=== PATIENT | female | born 1985 | race American Indian/Alaskan Native ===

== ENCOUNTER 2017-06-29 10:08 | Outpatient (CLI) | payer MEDICAID | END 2017-06-29 10:09 | disposition home or self-care (01) | LOC: VAS 10:08 | PROVIDERS: ATTEND Obstetrics & Gynecology | DX: M79.661 Pain in right lower leg (principal); M79.89 Other specified soft tissue disorders; I10 Essential (primary) hypertension | CPT/HCPCS: 93970 ==

== ENCOUNTER 2017-07-03 10:03 | Inpatient (IN) | payer MEDICAID ==
--- NOTE | 2017-07-02 17:56 | History and Physical Report ---
History of Present Illness Date of examination: 06/28/17 Chief complaint: repeat delivery History of present illness: Past History : 4 Term Births: 2 Living Children: 2 Para: 2 Prev : 2 Spont. Ab: 1 # 1 Delivery date: 06/06/2007 Weeks Gestation: 40.3 Delivery type: Anesthesia type: general Delivery location: [facility] Infant Sex: Male weight: 7-4 Name: Desmond Comments: Placental abruption # 2 Delivery date: 08/2013 Comments: 9 wks ? blood disorder # 3 Delivery date: 03/13/2015 Weeks Gestation: 38 Delivery type: Anesthesia type: epidural Delivery location: [facility] Infant Sex: female weight: 9.69 Comments: none Risk Factors: Smoked Tobacco Use: Never smoker Smokeless Tobacco Use: Never Passive smoke exposure: no Drug use: no HIV high-risk behavior: low risk Caffeine use: 0 drinks per day Alcohol use: no Seatbelt use: preg-counseling specialist % Dietary Counseling: pn yes Past Medical History: Reviewed history from 10/27/2014 and no changes required: None Past Surgical History: Reviewed history from 10/27/2014 and no changes required: C/S x 2 Past Medical History 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 Infection History Hx of STD: chlamydia HIV Risk Eval: low risk Hepatitis B Risk Eval: low risk Personal hx. of genital herpes: no Partner hx. of genital herpes: no Rash, Viral, or Febrile illness since last LMP? no Varicella/Chicken Pox Status: Previous Disease TB Risk: no Genetic History Congenital Heart Defect: Mom: no Dad: no Tierra Disease: Mom: no Dad: no Thalassemia Mom: no Dad: no Neural Tube Defect Mom: no Dad: no Down's Syndrome Mom: no Dad: no Felix-Sachs Mom: no Dad: no Sickle Cell Disease/Trait Mom: no Dad: no Hemophilia Mom: no Dad: no Muscular Dystrophy Mom: no Dad: no Cystic Fibrosis Mom: no Dad: no Travis Chorea Mom: no Dad: no Mental Retardation Mom: no Dad: no Fragile X Mom: no Dad: no Other Genetic/Chromosomal Disorder Mom: no Dad: no Child w/other defect Mom: no Dad: no Enviromental Exposures Xray Exposure: no Medication, drug, or alcohol use since LMP: no Chemical/Other Exposure: no Exposure to Cat Liter: no Hx of Parvovirus (Fifth Disease): no 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 Allergies: No known allergies Physical Exam General appearance: well nourished, healthy appearing, no distress Chest/Lungs: respiratory effort normal, lungs clear to auscultation Cardiovascular: normal rate and rhythm Abdomen/GI: normal bowel sounds; soft, nontender Neuro: grossly normal DTRs, sensation, strength, cranial nerves Extremities: edema (B)LE Past History - Obstetrical History Expected Date of Delivery: 07/08/17 Actual Gestation: 39 Week(s) 1 Day(s) : 3 Medications and Allergies Allergies Allergy/AdvReac Type Severity Reaction Status Date / Time No Known Allergies Allergy Verified 08/30/13 11:07 Home Medications Medication Instructions Recorded Confirmed Last Taken Type Ferrous Sulfate [Feosol] 325 mg PO QDAY 08/30/13 03/11/15 Unknown History Oxycodone HCl/Acetaminophen 1 each PO Q6HR PRN #14 tablet 08/31/13 03/11/15 Unknown Rx [Percocet 10-325 mg] Docusate Sodium [Colace] 100 mg PO BID PRN #60 capsule 03/11/15 Unknown Rx Ibuprofen [Motrin] 800 mg PO Q8H PRN #30 tablet 03/11/15 Unknown Rx Vit#96/Ferrous Fum/FA 1 each PO QDAY 03/11/15 03/11/15 03/10/15 23:00 History [ Tablet] 1 oxyCODONE /ACETAMINOPHEN [Percocet 1 - 2 tab PO Q6HR PRN #30 tablet 03/11/15 Unknown Rx 5/325] Labetalol [Normodyne TAB] 400 mg PO BID 30 Days 03/14/15 Unknown Rx NIFEdipine XL [Procardia Xl] 30 mg PO QDAY #30 tablet 03/14/15 Unknown Rx Active Meds: Active Medications Citric Acid/Sodium Citrate (Bicitra) 30 ml PO ONCE ONE Stop: 07/03/17 08:01 Famotidine (Pepcid) 20 mg IV ONCE ONE Stop: 07/03/17 08:01 Cefazolin Sodium (Ancef/Sterile Water 2 Gm/20 Ml) 2 gm in 20 mls @ 80 mls/hr IV PREOP NR PRN Reason: Protocol Lactated Ringer's (Lactated Ringers) 1,000 mls @ 2,250 mls/hr IV PREOP JOCY Stop: 07/04/17 08:27 Oxytocin/Sodium Chloride (Pitocin/Ns 20 Unit/1000ml Drip) 20 units in 1,000 mls @ 0 mls/hr IV TITR JOCY PRN Reason: As Directed Metoclopramide HCl (Reglan) 10 mg IV ONCE ONE Stop: 07/03/17 08:43 Results All other labs normal. Assessment and Plan - Patient Problems (1) 39 weeks gestation of Status: Acute (2) Maternal care for scar from previous delivery Status: Acute Qualifiers: Previous delivery type: P Plan to address problem: Maternal care for low transverse scar from previous delivery (ICD10- O34.211) She declined BTL, She was informed of her increased risk for uterine ruptrue with each subsequent pregnancies as well as higher risk for injury to bowel, bladder and other organs and bleeding and infection with each subsequent surgery. Patient voiced understanding and agrees with plan of care control options reviewed with patient Mirena, Paragard, Nuva ring, Nexplanon and Depoprovera handouts/ pamphlets given. Risks/benefits of each explained. She will call back w/ her decision Orders: OB follow up ([id number]) Urine Chemstrip ([id number]) Consent reviewed and signed . The risks and alternatives for this surgery were reviewed with the patient. She was informed of possible bleeding, infection, injury to bowel, bladder, ureters or other adjacent organs. The patient was instructed/informed the following: The normal length of hospital stay for this procedure. Nothing to eat or drink after midnight the evening prior to surgery. Pre-op instruction sheets given. Wound care instructions given. Infection precautions reviewed, patient to call for any signs or symptoms of infection. The usual discomforts associated with this procedure were detailed. Proper use of pain medicines was reviewed. Patient was given ample opportunity to have all her questions answered before signing informed consent.
[~2017-07-03 10:03] MED LIST: ANCEF/STERILE WATER 2 GM/20 ML 2 GM/20 ML SYRINGE IV NR; BICITRA PO SCH; PEPCID IV SCH; PITOCin/NS 20 UNIT/1000ML DRIP 20 UNITS/1,000 ML BAG IV SCH; REGLAN IV SCH
--- NOTE | 2017-07-03 10:39 | Anesthesia Day of Surgery ---
Anesthesia Day of Surgery - Day of Surgery Patient Examined: Yes Patient H&P Reviewed: Yes Patient is NPO: Yes Beta Blockers: Yes
--- NOTE | 2017-07-03 10:39 | Anesthesia Consultation ---
Anesthesia Consult and Med Hx Date of service: 07/03/17 - Airway Anesthetic Teeth Evaluation: Good ROM Head & Neck: Adequate Mental/Hyoid Distance: Adequate Mallampati Class: Class II Intubation Access Assessment: Probably Good - Pre-Operative Health Status ASA Pre-Surgery Classification: ASA2 Proposed Anesthetic Plan: Epidural, Spinal - Pulmonary Hx Smoking: No Hx Asthma: No COPD: No Hx Pneumonia: No - Cardiovascular System Hx Hypertension: Yes (with ) - Central Nervous System Hx Seizures: No Hx Psychiatric Problems: No - Endocrine Hx Renal Disease: No Hx End Stage Renal Disease: No Hx Insulin Dependent Diabetes: No Hx Non-Insulin Dependent Diabetes: No Hx Hypothyroidism: No Hx Hyperthyroidism: No - Hematic Hx Anemia: No Hx Sickle Cell Disease: No - Other Systems Hx Alcohol Use: No
[2017-07-03] MEDS ORDERED: NARCAN 0.4 MG/1 ML IV PRN ×2 (10:40→15:38)
[2017-07-03] MEDS ORDERED: BENADRYL IV PRN (10:40)
[2017-07-03] MEDS ORDERED: DILAUDID IV PRN (10:40)
[2017-07-03] MEDS ORDERED: ZOFRAN IV PRN (10:40)
[2017-07-03] MEDS ORDERED: TORADOL IV PRN ×2 (10:41→20:25)
[2017-07-03] MEDS ORDERED: SODIUM CHLORIDE FLUSH SYRINGE 10 ML IV NR (11:00)
[2017-07-03] MEDS: LACTATED RINGERS 1,000 ML IV SCH ×2 (11:08→11:15)
[2017-07-03 11:13] LABS: Hematocrit 34.8 % (30.3-42.9); Hemoglobin 11.7 gm/dl (10.1-14.3); Mean Corpuscular HGB Conc 34 % (30-34); Mean Corpuscular Hemoglobin 30 pg (28-32); Mean Corpuscular Volume 90 fl (79-97); Platelet Count 180 K/mm3 (140-440); Red Blood Count 3.88 M/mm3 (3.65-5.03); Red Cell Distribution Width 14.6 % (13.2-15.2)
[2017-07-03] MEDS ORDERED: MORPHINE ONE (11:32)
[2017-07-03] MEDS ORDERED: ANCEF/STERILE WATER 2 GM/20 ML IV ONE (11:59)
[2017-07-03] MEDS ORDERED: NACL 0.9% IR ONE (12:05)
[2017-07-03] MEDS ORDERED: WATER FOR IRRIG STERILE IR ONE (12:05)
[2017-07-03] MEDS ORDERED: METHERGINE IM ONE (12:12)
[2017-07-03] MEDS ORDERED: HEMABATE IM ONE (12:12)
[2017-07-03] MEDS ORDERED: DIPRIVAN 10 MG/ML IV ONE (12:21)
[2017-07-03] MEDS ORDERED: NEO SYNEPHRINE/NS Syringe(OR USE) IV ONE (12:30)
[2017-07-03] MEDS ORDERED: XYLOCAINE MPF 2% ONE (12:35)
--- NOTE | 2017-07-03 13:24 | Operative Report ---
Operative Report Operative Report: Date of procedure: 07/03/2017 Pre-operative diagnosis: 1. Intrauterine at 39 weeks 2. Previous delivery 2 require repeat Post-operative diagnosis: 1. Intrauterine at 39 weeks 2. Previous delivery 2 require repeat 3. Keloid scar prohibiting appropriate reapproximation of skin incision. Procedure name(s): 1. Low transverse section 2. Excision of keloid scar Surgeon: Paige Hodge MD Screen Printing Loader Unloader: Tiana Jenkins M.D. Anesthesia: Epidural anesthesia EBL: 1000 mL Complications: None d Findings: Liveborn male . Weight 10 lbs. 2 oz. Apgars 9 at 1 minute, 9 at 5 minutes. Grossly normal uterus tubes and ovaries Procedure: After risks, benefits, and complications and alternatives and consequences, were discussed with patient, and she voiced her understanding and desired to proceed. Patient was taken to the OR, where epidural anesthesia was placed. She was then placed in the left lateral tilt position, and prepped and draped in the usual sterile fashion. After timeout was performed, and an appropriate level of anesthesia was noted, a Pfannenstiel incision was made and extended to the fascia. The fascia was incised and extended in a lateral direction. At this point patient complained of some discomfort with the incision. The overlying fascia was sharply dissected away from the underlying rectus muscles in the superior-inferior direction. Patient was extremely uncomfortable during the procedure. However because the incision was made and concern for the rerouting of blood away from the uterus therefore causing the potentially poor outcome for the the procedure was continued while anesthesia attempted to give the patient pain relief. The midline was entered bluntly. The vesicouterine fold was incised and with blunt and sharp dissection the bladder flap was created. A transverse incision was made in the lower uterine segment and extended in the superior lateral direction with finger fractionation. Clear fluid was noted. The infant head was lifted out of the pelvis however there was no pressure on the uterus to appropriately to deliver the infant's head safely. The vacuum was applied to the head and with 500 mmHg pressure the head was delivered from the cephalic position. Infant had spontaneous cry and excellent tone. The cord was doubly clamped and cut. The infant's mouth and nose were bulb suctioned. And the was given to the resuscitation team present. The placenta was manually extracted. The uterus was exteriorized and cleaned any products of conception and placental tissue. The incision was reapproximated using 0 Vicryl in a running interlocking stitch. Incisions reinforced with imbricating layer of 0 Vicryl. Further hemostasis was obtained with 3-0 Vicryl interrupted [id number] fashion. Grossly normal tubes and ovaries were noted. Once hemostasis was noted, the uterus was allowed back into the pelvic cavity. The pelvis was irrigated with warm normal saline. Once hemostasis was noted, Surgicel was applied to the anterior surface of the incision. Once hemostasis was noted, Interceed was applied to the anterior aspect of the uterus for adhesion prevention. Once hemostasis was noted, attention was turned to the rectus muscles. Once hemostasis was noted, the fascia was reapproximated using 0 Vicryl in a simple running stitch. Once hemostasis was noted, the incision was irrigated with normal saline. The incision was then reapproximated using 4-0 Vicryl on a Hermilo needle in a subcuticular manner. Patient tolerated the procedure well she was taken to recovery room in stable condition. Counts were correct 3
--- NOTE | 2017-07-03 13:25 | Post Anesthesia Evaluation ---
- Post Anesthesia Evaluation Patient Participated: Yes Airway Patent: Yes Stable Respiratory Function: Yes Nausea/Vomiting: Yes Temp > 96.8F: Yes Pain Manageable: Yes Adequeate Hydration: Yes Anesthesia Complications: No Block Receding Appropriately: Yes Patient on Ventilator: No
[2017-07-03] MEDS ORDERED: SODIUM CHLORIDE FLUSH SYRINGE 10 ML IV SCH (15:38)
[2017-07-03] MEDS ORDERED: MYLICON PO PRN (15:38)
[2017-07-03] MEDS ORDERED: TYLENOL PR PRN (15:38)
[2017-07-03] MEDS ORDERED: TYLENOL PO PRN (15:38)
[2017-07-03] MEDS ORDERED: LANSINOH TP PRN (15:38)
[2017-07-03] MEDS ORDERED: TUCKS PAD TP PRN (15:38)
[2017-07-03] MEDS ORDERED: MILK OF MAGNESIA PO PRN (15:38)
[2017-07-03] MEDS ORDERED: PITOCin/NS 20 UNIT/1000ML DRIP 20 UNITS/1,000 ML BAG IV SCH (15:48)
[2017-07-03] MEDS ORDERED: D5LR 1,000 ML IV SCH (16:00)
[2017-07-03] MEDS: ZOFRAN IV PRN ×2 (16:25→20:05)
--- NOTE | 2017-07-03 17:49 | Event Note ---
Date: 07/03/17 Spoke with patient in L&D PACU concerning her pain control during the procedure. Emphasized she was tested prior to the incision being made while anesthesia was observing. Explained concern for decrease blood flow to baby once incision was made as well as inability to wait for further dosing of epidural delaying delivery and possible poor outcome for baby. Questions were answered, she voiced understanding and had no complaints.
[2017-07-03] MEDS: ANCEF/NS 1 GM/50 ML 1 GM/50 ML BAG IV SCH (20:17)
[2017-07-03] MEDS ORDERED: MORPHINE IV PRN ×2 (20:25)
[2017-07-04 02:10] LABS: Hematocrit 30.4 % (30.3-42.9); Hemoglobin 10.5 gm/dl (10.1-14.3)
[2017-07-04] MEDS: ANCEF/NS 1 GM/50 ML 1 GM/50 ML BAG IV SCH (04:12)
[2017-07-04] MEDS ORDERED: BOOSTRIX IM ONE (06:00)
--- NOTE | 2017-07-04 06:35 | Progress Note ---
Assessment and Plan Pt w/o complaint Breast feeding BP 130/70-60 Afebrile FF below umb Lochia small Dressing D&I to be removed this AM H&H 09/17 drop r/t blood loss from surgery Pt is asymptomatic Doing well s/p repeat c/s P: continue pathway Advance diet and activity as tolerated Subjective - Subjective Date of service: 07/04/17 (no c/o voiced) Principal diagnosis: Day #1 s/p repeat c/s Patient reports: appetite normal, voiding normally, pain well controlled, ambulating normally Ong: doing well Objective - Vital Signs Latest vital signs: Vital Signs Temp Pulse Resp BP Pulse Ox 07/04/17 04:00 99.2 F 76 20 126/74 07/04/17 01:00 99 F 80 20 125/68 07/03/17 20:30 98.9 F 80 20 130/75 07/03/17 15:00 98.0 F 80 18 150/92 07/03/17 14:24 20 07/03/17 14:20 83 18 136/84 99 07/03/17 14:05 82 20 138/92 99 07/03/17 13:50 86 20 132/91 99 07/03/17 13:35 81 20 123/81 97 07/03/17 13:31 83 26 H 121/82 97 07/03/17 13:25 85 11 L 121/77 97 07/03/17 13:19 97.8 F 87 18 114/73 97 Intake and Output 07/03/17 07/03/17 07/04/17 14:59 22:59 06:59 Intake Total 1150 50 120 Output Total 659 27 5188 Balance 650 30 -980 Intake: IV 1150 50 ANCEF/NS 1 GM/50 ML 1 gm 50 In 50 ml @ 100 mls/hr IV Q8H JOCY Rx#:[id number] Lactated Ringers 1,000 ml 1000 @ 2250 mls/hr IV PREOP JOCY Rx#:[id number] Intake, Free Water 120 Output: Urine 500 1100 Indwelling Catheter 1100 Uretheral (Armenta) 250 Oral Regurgitation 20 Other: Total, Output Amount 20 1100 Weight 197 lb Patient Weight 07/04/17 06:59 Weight 197 lb - Exam Breasts: Present: normal, Cardiovascular: Present: Regular rate Lungs: Present: Normal air movement Abdomen: Present: normal appearance, soft Uterus: Present: normal, fundal height below umbilicus Extremities: Present: normal Deep Tendon Reflex Grade: Normal +2 Incision: Present: dry, intact, dressed
[2017-07-04] MEDS: PERCOCET 5/325 PO PRN ×3 (09:27→22:49)
[2017-07-04] MEDS: MOTRIN PO PRN ×2 (09:28→14:31)
--- NOTE | 2017-07-04 10:23 | Progress Note ---
Subjective Date of service: 07/04/17 Principal diagnosis: Day #1 s/p repeat c/s Interval history: 1st POD after Patient is in the bed, relatively comfortable. Pain is mostly controlled with pain meds. Ambulated well. No residual neurological deficit. No pruritus. No anesthesia complications Objective - Constitutional Vitals: Vital Signs - 12hr 07/04/17 07/04/17 07/04/17 01:00 04:00 08:08 Temperature 99 F 99.2 F 98.0 F Pulse Rate 80 76 70 Respiratory 20 20 20 Rate Blood Pressure 125/68 126/74 120/70 - Labs CBC & Chem 7: 07/04/17 01:15
[2017-07-05] MEDS: PERCOCET 5/325 PO PRN ×2 (04:13→10:42)
--- NOTE | 2017-07-05 08:16 | Progress Note ---
Assessment and Plan - Patient Problems (1) delivery delivered Current Visit: No Status: Acute Plan to address problem: -doing well -routine pp/post op care -d/c home today. Subjective - Subjective Principal diagnosis: Day #2 s/p repeat c/s Interval history: doing well. desires d/c home today. Patient reports: appetite normal, voiding normally, pain well controlled : doing well, nursing well Objective - Vital Signs Latest vital signs: Vital Signs Temp Pulse Resp BP 07/05/17 04:13 20 07/05/17 00:00 98.3 F 86 18 123/70 07/04/17 23:49 16 07/04/17 22:49 18 07/04/17 16:55 98.5 F 84 29 H 116/70 07/04/17 11:45 99.0 F 74 20 116/80 Intake and Output 07/04/17 07/05/17 07/05/17 22:59 06:59 14:59 Intake Total 600 480 Output Total 350 Balance 250 480 Intake: Oral 360 Intake, Free Water 240 480 Output: Urine 350 Void 350 Other: Total, Intake Amount 360 Total, Output Amount 350 # Voids Void 1 1 - Exam Breasts: Present: normal Cardiovascular: Present: Normal S1, Normal S2 Lungs: Present: Clear to auscultation, Normal air movement Abdomen: Present: normal appearance, soft, normal bowel sounds. Absent: distention, tenderness, guarding Uterus: Present: normal, firm, fundal height below umbilicus. Absent: bogginess , tenderness Extremities: Present: normal. Absent: tenderness, edema Deep Tendon Reflex Grade: Normal +2 Incision: Present: normal, dry, intact
--- NOTE | 2017-07-05 08:39 | Discharge Summary ---
Providers - Providers Date of Admission: 07/03/17 10:03 Date of discharge: 07/05/17 Attending physician: BRITTANIE HOPE 07/03/17 15:38 Consult to Gliding Pilot Instructor [CONS] Routine Reason For Exam: Primary care physician: BRITTANIE HOPE Hospitalization Reason for admission: section Delivery: Procedure: repeat low transverse Procedure details: see op note Incision: normal, dry Discharge diagnosis: IUP at term delivered [place] baby: male Hospital course: Pt admitted for repeat c/s. Pt has had routine pp/ post op care. Pt desires d/c home today. Condition at discharge: Good Disposition: DC-01 TO HOME OR SELFCARE - Discharge Diagnoses (1) delivery delivered Status: Acute Plan - Discharge Medications Prescriptions: Docusate Sodium [Colace] 100 mg PO BID PRN #30 capsule PRN Reason: Constipation Ferrous Sulfate [Feosol 325 MG tab] 325 mg PO BID #90 tablet Ibuprofen [Motrin 800 MG tab] 800 mg PO TID PRN #30 tablet PRN Reason: Pain Lidocain2.5%/Prilocai2.5% [Emla] 5 gm TP ONCE #1 tube oxyCODONE /ACETAMINOPHEN [Percocet 5/325 mg] 1 - 2 tab PO Q4HR PRN #30 tablet PRN Reason: Pain - Provider Discharge Summary Activity: routine, no sex for 6 weeks, no heavy lifting 4 weeks, no strenuous exercise Diet: routine Instructions: routine Additional instructions: [] Smoking cessation referral if applicable(refer to patient education folder for contact #) [] Refer to [facility]'s [facility] Booklet Call your doctor immediately for: * Fever > 100.5 * Heavy vaginal bleeding ( >1 pad per hour) * Severe persistent headache * Shortness of breath * Reddened, hot, painful area to leg or breast * Drainage or odor from incision. * Keep incision clean and dry at all times and follow doctor's instructions regarding bathing/showering - Follow up plan Follow up: BRITTANIE HOPE MD [Primary Care Provider] - 7 Days
[2017-07-05 10:07] VITALS: BP 136/80
[2017-07-05] MEDS: MOTRIN PO PRN (10:42)
== END 2017-07-05 15:40 | disposition home or self-care (01) | DRG 765 ==
LOC: APU 10:03 → OB 15:38
PROVIDERS: ADMIT Obstetrics & Gynecology; ATTEND Obstetrics & Gynecology
PROC: 10D00Z1 Extraction of Products of Conception, Low, Open Approach (ICD-10-PCS; principal; 2017-07-03)
PROC: 0HB7XZZ Excision of Abdomen Skin, External Approach (ICD-10-PCS; 2017-07-03)
DX: O34.211 Maternal care for low transverse scar from previous cesarean delivery (principal); D62 Acute posthemorrhagic anemia; O75.89 Other specified complications of labor and delivery; Z3A.39 39 weeks gestation of pregnancy; Z37.0 Single live birth
CPT/HCPCS: 36415; 85014; 85018; 85027; 86592; 86850; 86900; 86901; 88305; 88307; 90471; 90715; 99211; A6250; C1765; G0463; J0690; J1885; J2210; J2270; J2370; J2405; J2590; J2704; J2765; J7120; J7121

== ENCOUNTER 2020-03-01 05:49 | Inpatient (IN) | payer MEDICAID ==
--- NOTE | 2020-02-29 16:02 | History and Physical Report ---
History of Present Illness Date of examination: 03/01/20 History of present illness: Patient was admitted for scheduled repeat section Menstrual History Regularity: regular Menses every: 28 days Duration: 5-7 LMP: 06/02/2019 LMP reliability: definite LMP character: normal test type: urine test Planned ? no EDC Calculations LMP: 03/08/2020 EDC Confirmation: 03/08/2020 Past History : 5 Term Births: 3 Premature Births: 0 Living Children: 3 Para: 3 Mult. Births: 0 Prev : 3 Aborta: 1 Elect. Ab: 0 Spont. Ab: 1 Ectopics: 0 # 1 Delivery date: 06/06/2007 Weeks Gestation: 40.3 Delivery type: Anesthesia type: general Delivery location: [facility] Sex: Male weight: 7-4 Name: Desmond Comments: Placental abruption # 2 Delivery date: 08/2013 Comments: 9 wks ? blood disorder # 3 Delivery date: 03/13/2015 Weeks Gestation: 38 Delivery type: Anesthesia type: epidural Delivery location: [facility] Infant Sex: female weight: 9.69 Comments: none # 4 Delivery date: 07/03/2017 Weeks Gestation: 39 Delivery type: Anesthesia type: epidural Delivery location: [facility] Infant Sex: male weight: 10.13 Past Medical History: Hypertension Past Surgical History: : C/S x 3 Excision keloid incision scar(07/03/2017) Past Medical History Hypertension: positive Abnormal PAP: negative MOHAMUD Exposure: negative Infertility: negative Uterine Anomaly: negative Uterine Surgery (not C/S): negative Other Gynecologic Problems: negative Social Hx: Patient is single 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 No ETOH, Drugs, 1 dog, Lives in house with parents and children Infection History Hx of STD: chlamydia- 2007 HIV Risk Eval: low risk Hepatitis B Risk Eval: low risk Personal hx. of genital herpes: no Partner hx. of genital herpes: no Rash, Viral, or Febrile illness since last LMP? no Varicella/Chicken Pox Status: Previous Disease TB Risk: no Genetic History ADVANCED MATERNAL AGE Congenital Heart Defect: Mom: no Dad: no Tierra Disease: Mom: no Dad: no Thalassemia Mom: no Dad: no Neural Tube Defect Mom: no Dad: no Down's Syndrome Mom: no Dad: no Felix-Sachs Mom: no Dad: no Sickle Cell Disease/Trait Mom: no Dad: no Hemophilia Mom: no Dad: no Muscular Dystrophy Mom: no Dad: no Cystic Fibrosis Mom: no Dad: no Johnson Chorea Mom: no Dad: no Mental Retardation Mom: no Dad: no Fragile X Mom: no Dad: no Other Genetic/Chromosomal Disorder Mom: no Dad: no Child w/other defect Mom: no Dad: no Enviromental Exposures Xray Exposure: no Medication, drug, or alcohol use since LMP: no Chemical/Other Exposure: no Exposure to Cat Liter: no Hx of Parvovirus (Fifth Disease): no 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 Allergies (reviewed today): No known allergies PUI?: No Past History Past Medical History: other (SEE HPI) Past Surgical History: section, other (SEE HPI) 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 REPRESENTATIVE History: chlamydia, other (SEE HPI) Family/Genetic History: other (SEE HPI) Social history: full code, other (SEE HPI) - Obstetrical History Expected Date of Delivery: 03/08/20 Actual Gestation: 39 Week(s) 0 Day(s) : 5 Para: 3 Hx # Term Pregnancies: 3 Number of Pregnancies: 0 Spontaneous Abortions: 1 Induced : 0 Number of Living Children: 3 Medications and Allergies Allergies Allergy/AdvReac Type Severity Reaction Status Date / Time No Known Allergies Allergy Verified 08/30/13 11:07 Home Medications Medication Instructions Recorded Confirmed Last Taken Type Docusate Sodium [Colace] 100 mg PO BID PRN #30 capsule 07/03/17 Unknown Rx Ferrous Sulfate [Feosol 325 MG tab] 325 mg PO BID #90 tablet 07/03/17 Unknown Rx Ibuprofen [Motrin 800 MG tab] 800 mg PO TID PRN #30 tablet 07/03/17 Unknown Rx Lidocain2.5%/Prilocai2.5% [Emla] 5 gm TP ONCE #1 tube 07/03/17 Unknown Rx oxyCODONE /ACETAMINOPHEN [Percocet 1 - 2 tab PO Q4HR PRN #30 tablet 07/03/17 Unknown Rx 5/325 mg] Vit-Fe Fumar-FA [ 1 tab PO QDAY 07/05/17 07/05/17 07/02/17 History Vitamin] 1 tab Active Meds: Active Medications Citric Acid/Sodium Citrate (Bicitra) 30 ml PO ONCE ONE Stop: 03/01/20 07:01 Famotidine (Pepcid) 20 mg IV ONCE ONE Stop: 03/01/20 07:01 Oxytocin/Sodium Chloride (Pitocin/Ns 20 Unit/1000ml Drip) 20 units in 1,000 mls @ 0 mls/hr IV TITR JOCY Lactated Ringer's (Lactated Ringers) 1,000 mls @ 2,250 mls/hr IV PREOP JOCY Stop: 03/02/20 05:57 Cefazolin Sodium (Ancef/Sterile Water 2 Gm/20 Ml) 2 gm in 20 mls @ 80 mls/hr IV PREOP NR; Protocol Metoclopramide HCl (Reglan) 10 mg IV ONCE ONE Stop: 03/01/20 07:01 - Physical Exam Breasts: Positive: deferred Results Result Diagrams: 03/01/20 06:45 All other labs normal. Assessment and Plan - Patient Problems (1) 39 weeks gestation of Current Visit: No Status: Acute (2) Elevated blood pressure affecting , antepartum Current Visit: No Status: Acute (3) Maternal care for scar from previous delivery Current Visit: No Status: Acute Qualifiers: Previous delivery type: low transverse Qualified Code(s): O34.211 - Maternal care for low transverse scar from previous delivery Plan to address problem: Patient admitted for repeat section. Patient informed the risks of the surgery include bleeding possibly bleeding heavy enough to require blood transfusion, infection possible damage to bowel bladder ureter. Patient understands that due to her previous surgery she is an increased risks of adjacent organ damage. Patient's questions answered. Patient understands and desires to proceed.
--- NOTE | 2020-03-01 06:45 | Anesthesia Consultation ---
Anesthesia Consult and Med Hx Date of service: 03/01/20 - Airway Anesthetic Teeth Evaluation: Good ROM Head & Neck: Adequate Mental/Hyoid Distance: Adequate Mallampati Class: Class II Intubation Access Assessment: Probably Good - Pulmonary Exam CTA: Yes - Cardiac Exam Cardiac Exam: RRR - Pre-Operative Health Status ASA Pre-Surgery Classification: ASA3 Proposed Anesthetic Plan: Spinal - Pulmonary Hx Smoking: No Hx Asthma: No COPD: No Hx Pneumonia: No - Cardiovascular System Hx Hypertension: Yes (with ) - Central Nervous System Hx Seizures: No Hx Psychiatric Problems: No - Endocrine Hx Renal Disease: No Hx End Stage Renal Disease: No Hx Insulin Dependent Diabetes: No Hx Non-Insulin Dependent Diabetes: No Hx Hypothyroidism: No Hx Hyperthyroidism: No - Hematic Hx Anemia: No Hx Sickle Cell Disease: No - Other Systems Hx Alcohol Use: No Hx Obesity: Yes
--- NOTE | 2020-03-01 06:45 | Anesthesia Day of Surgery ---
Anesthesia Day of Surgery - Day of Surgery Patient Examined: Yes Patient H&P Reviewed: Yes Patient is NPO: Yes
[2020-03-01] MEDS: LACTATED RINGERS 1,000 ML IV SCH ×2 (06:48→07:13)
[2020-03-01] MEDS ORDERED: METOCLOPRAMIDE 10 MG/2 ML INJ IV ONE (07:00)
[2020-03-01] MEDS ORDERED: BICITRA ORAL LIQD 30ML PO ONE (07:00)
[2020-03-01] MEDS ORDERED: FAMOTIDINE 20 MG/2 ML INJ IV ONE (07:00)
[2020-03-01] MEDS ORDERED: ceFAZolin/Water 2 GM/20 ML 2 GM/20 ML SYRINGE IV NR (07:00)
[2020-03-01 07:25] LABS: Hematocrit 36.4 % (30.3-42.9); Hemoglobin 12.3 gm/dl (10.1-14.3); Lymphocytes % (Auto) 21.9 % (13.4-35.0); Mean Corpuscular HGB Conc 34 % (30-34); Mean Corpuscular Volume 89 fl (79-97); Platelet Count 177 K/mm3 (140-440)
[2020-03-01 07:26] LABS: Basophils % (Auto) 0.2 % (0.0-1.8); Eosinophils % (Auto) 0.5 % (0.0-4.3); Lymphocytes # (Auto) 1.4 K/mm3 (1.2-5.4); Monocytes # (Auto) 0.5 K/mm3 (0.0-0.8); Monocytes % (Auto) 7.4 % (0.0-7.3)
[2020-03-01] MEDS ORDERED: SODIUM CHLORIDE 0.9% IRR 1,500 ML BOTTLE IR ONE (07:49)
[2020-03-01] MEDS ORDERED: WATER FOR IRRIG STERILE 1,500 ML BOTTLE IR ONE (07:49)
[2020-03-01] MEDS ORDERED: OXYTOCIN 20 UNIT/1000ML DRIP 20 UNITS/1,000 ML BAG IV SCH ×2 (08:00→11:11)
[2020-03-01] MEDS ORDERED: ceFAZolin/STERILE WATER 2 GM/20 ML SYRINGE IV ONE (08:15)
[2020-03-01] MEDS ORDERED: PHENYLEPHRINE 10 MG/1 ML INJ SDV ONE (08:16)
[2020-03-01] MEDS ORDERED: KETOROLAC 30 MG/1 ML INJ ONE (08:16)
[2020-03-01] MEDS ORDERED: DEXMEDETOMIDINE 200 MCG/2 ML VIAL IV ONE (08:16)
[2020-03-01] MEDS ORDERED: BUPIVACAINE/PF (0.5%) 5 MG/1 ML 30 ML VIAL INFILTRATI ONE (08:16)
[2020-03-01] MEDS ORDERED: SODIUM CHLORIDE 0.9% 100 ML ONE (08:16)
[2020-03-01] MEDS ORDERED: OXYTOCIN 10 UNIT/1 ML INJ ONE (08:38)
[2020-03-01] MEDS ORDERED: dexAMETHasone 20 MG/5 ML VIAL ONE (09:08)
--- NOTE | 2020-03-01 09:30 | Operative Report ---
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 Female infant weight 9 pounds 9 ounces Apgars 8 at 1 minute and 9 at 5 minutes Specimen(s): None Procedure: The patient was brought to the operating room. A spinal was placed without any complications. She was then placed in left lateral tilt. Prepped and draped in the usual sterile manner. After testing for adequate anesthesia level, an elliptical incision was made around the keloids scarred Pfannenstiel incision. The keloid scar was then removed. This incision was taken down to the fascia. The fascia was then nicked in the midline. This incision was extended out laterally with Osorio scissors. The fascia was then sharply and bluntly from the underlying rectus muscles. The rectus muscles were bluntly and sharply . The peritoneum was then entered with the metal drill operator's fingers. This incision was spread vertically with care not to damage the bladder below. Thickened adhesions were lysed between the anterior abdominal wall and anterior uterus in order to see the uterovesical junction. The bladder flap was then formed sharply and bluntly with Metzenbaum scissors. Bladder blade was placed. A transverse incision was made in lower uterine segment. This incision was extended laterally with the operators fingers. The amniotic sac was then entered bluntly with the metal drill operator's fingers. The infant was delivered from the vertex position. Bulb suction on the mother's abdomen. Cord was double clamped and cut. The was then passed to the nursery personnel who were in attendance. The above scores were given by the nursery personnel. The placenta was then bluntly removed. The uterus was then externalized and wiped clean the remaining products. The uterine incision was closed in layers. The first incision was closed in a locking manner using 0 Vicryl. This was followed by imbricating stitch also with 0 Vicryl. Patient had several areas of oozing from the lysis of adhesions anterior abdominal wall, these areas were made hemostatic with cautery and additional [id number] sutures with 0 Vicryl. This closure was hemostatic. The bladder flap was copiously irrigated and found to be hemostatic. The pelvis was copiously irrigated and found to be hemostatic. The uterus was then placed back to the patient's abdomen. Surgicel was placed along the uterine incision and one area from the lysis of adhesions. The retractors were removed. The rectus muscles were inspected and found to be hemostatic. The fascia was then closed in a running manner using 0 Vicryl. This incision was hemostatic irrigation Bovie. The skin was reapproximated with 4-0 Vicryl subcuticularly. Dermabond was placed along the skin incision closure. The patient tolerated procedure well. Her urine was clear. The infant was admitted to the well baby nursery. The patient was accompanied to recovery room in good condition. Instrument count correct x3.
--- NOTE | 2020-03-01 10:02 | Post Anesthesia Evaluation ---
- Post Anesthesia Evaluation Patient Participated: Yes Airway Patent: Yes Stable Respiratory Function: Yes Nausea/Vomiting: No Temp > 96.8F: Yes Pain Manageable: Yes Adequeate Hydration: Yes Anesthesia Complications: No Block Receding Appropriately: Yes
[2020-03-01] MEDS ORDERED: HYDROcodone/ACETAMINOPHEN 5-325 MG TAB PO PRN (11:11)
[2020-03-01] MEDS ORDERED: NALOXONE 0.4 MG/1 ML INJ IV PRN (11:11)
[2020-03-01] MEDS ORDERED: WITCH HAZEL/ GLYCERIN PAD TP PRN (11:11)
[2020-03-01] MEDS ORDERED: MAGNESIUM HYDROXIDE (MOM) ORAL LIQD UDC PO PRN (11:11)
[2020-03-01] MEDS ORDERED: LANOLIN/ZINC/DIMETHICONE (LANSINOH) 7 GM TP PRN (11:11)
[2020-03-01] MEDS: D5W/LACTATED RINGERS 1,000 ML IV SCH ×2 (11:58→18:26)
[2020-03-01] MEDS: KETOROLAC 30 MG/1 ML INJ IV SCH ×3 (12:48→23:40)
[2020-03-01] MEDS: ceFAZolin/NS 1 GM/50 ML 1 GM/50 ML BAG IV SCH (17:53)
[2020-03-01 20:45] LABS: Hematocrit 29.1 % (30.3-42.9); Hemoglobin 9.8 gm/dl (10.1-14.3)
[2020-03-02] MEDS: ceFAZolin/NS 1 GM/50 ML 1 GM/50 ML BAG IV SCH (01:40)
[2020-03-02] MEDS: D5W/LACTATED RINGERS 1,000 ML IV SCH (03:55)
[2020-03-02] MEDS: KETOROLAC 30 MG/1 ML INJ IV SCH (05:58)
--- NOTE | 2020-03-02 08:22 | Progress Note ---
Assessment and Plan A: 34 y.o. s/p rpt @ term with c/o pain not well controlled P:Changed pain medication to 2 [place] every 6hrs prn. Continue with care. Encourage ambulation. Advance diet as tolerated. Subjective - Subjective Date of service: 03/02/20 (Pt states that she is in a lot of pain) Principal diagnosis: s/p rpt @ term, POD #! Patient reports: voiding normally, pain poorly controlled : doing well Objective - Vital Signs Latest vital signs: Vital Signs Temp Pulse Resp BP BP Pulse Ox 03/02/20 04:00 98.6 F 66 18 107/79 03/02/20 00:00 98.7 F 71 16 121/71 03/01/20 19:30 98.6 F 18 138/79 03/01/20 16:15 98.3 F 74 20 116/82 97 03/01/20 10:51 97.3 F L 71 18 98/63 99 03/01/20 10:30 75 13 91/58 100 03/01/20 10:15 97.4 F L 80 13 80/48 99 03/01/20 10:00 80 13 100/60 98 03/01/20 09:45 78 13 98/58 97 03/01/20 09:40 76 12 92/55 97 03/01/20 09:35 75 12 93/49 97 03/01/20 09:30 98.4 F 80 12 110/67 96 Intake and Output 03/01/20 03/02/20 03/02/20 22:59 06:59 14:59 Intake Total 0274.826 4383 Output Total 1400 Balance 1158.333 -100 Intake: IV 408.205 0423 ANCEF/NS 1 GM/50 ML 1 gm 50 In 50 ml @ 100 mls/hr IV Q8H JOCY Rx#:[id number] D5lr 1,000 ml @ 125 mls/ 327.053 7275 hr IV DIRECT JOCY Rx#: [id number] Intake, Free Water 300 300 Output: Urine 1400 Indwelling Catheter 1400 Other: Total, Output Amount 800 - Exam Breasts: Present: deferred Cardiovascular: Present: Regular rate Lungs: Present: Normal air movement Abdomen: Present: normal appearance, soft, normal bowel sounds Vulva: both: normal Uterus: Present: normal, firm Extremities: Present: normal Incision: Present: normal, dry (No s/sx of infection noted.), intact - Labs Labs: Abnormal lab results 03/01/20 Range/Units 20:36 Hgb 9.8 L (10.1-14.3) gm/dl Hct 29.1 L D (30.3-42.9) %
[2020-03-02] MEDS: HYDROcodone/ACETAMINOPHEN 5-325 MG TAB PO PRN ×3 (09:32→21:15)
[2020-03-02] MEDS: FERROUS SULFATE 325 MG TAB PO SCH (09:32)
[2020-03-02] MEDS: IBUPROFEN 800 MG TAB PO PRN ×2 (11:53→18:00)
[2020-03-03] MEDS: IBUPROFEN 800 MG TAB PO PRN (00:05)
[2020-03-03] MEDS: HYDROcodone/ACETAMINOPHEN 5-325 MG TAB PO PRN ×2 (03:43→09:16)
--- NOTE | 2020-03-03 08:15 | Discharge Summary ---
Providers - Providers Date of Admission: 03/01/20 05:49 Date of discharge: 03/03/20 (pt desires d/c home) Attending physician: SHAINA LAMB 03/01/20 11:11 Consult to Filler Shaker [CONS] Routine Reason For Exam: Primary care physician: SHANIA LAMB Hospitalization Reason for admission: repeat c/s Condition: Good Pertinent studies: postop H&H 9.8/29.1, asymptomatic anemia from acute blood loss Procedures: repeat c/s Hospital course: uncomplicated repeat c/s and postop course Disposition: DC-01 TO HOME OR SELFCARE - Discharge Diagnoses (1) delivery delivered Status: Acute Core Measure Documentation - Palliative Care Palliative Care/ Comfort Measures: Not Applicable - Core Measures Any of the following diagnoses?: none Exam - Constitutional Vitals: Temp Pulse Resp BP Pulse Ox 97.9 F 91 H 18 131/87 100 03/02/20 23:56 03/02/20 23:56 03/03/20 00:05 03/02/20 23:56 03/02/20 23:56 General appearance: Present: no acute distress, well-nourished - EENT Eyes: Present: PERRL ENT: hearing intact, clear oral mucosa - Neck Neck: Present: supple, normal ROM - Respiratory Respiratory effort: normal Respiratory: bilateral: CTA - Cardiovascular Rhythm: regular Heart Sounds: Absent: rub, click - Extremities Extremities: No edema - Abdominal General gastrointestinal: Present: soft, non-tender, non-distended, normal bowel sounds Female genitourinary: Present: normal - Integumentary Integumentary: Present: clear, warm, dry - Musculoskeletal Musculoskeletal: gait normal, strength equal bilaterally - Psychiatric Psychiatric: appropriate mood/affect, intact judgment & insight - Neurologic Neurologic: CNII-XII intact, moves all extremities - Additional findings Additional findings: incision D&I, fundus firm, lochia scant, Plan Activity: advance as tolerated Diet: regular Wound: open to air, keep clean and dry Follow up with: BRITTANIE HOPE MD [Staff Physician] - 7 Days (Congratulations! Please keep your appointment next week for your incision check. Call for any questions or concerns. ) Forms: [facility] Discharge Summary
[2020-03-03] MEDS: FERROUS SULFATE 325 MG TAB PO SCH (09:17)
[2020-03-03 16:20] VITALS: BP 136/78
== END 2020-03-03 15:30 | disposition home or self-care (01) | DRG 765 ==
LOC: APU 05:49 → UNDODISIN 07:35 → OB 11:01
PROVIDERS: ADMIT Obstetrics & Gynecology; ATTEND Obstetrics & Gynecology
PROC: 10D00Z1 Extraction of Products of Conception, Low, Open Approach (ICD-10-PCS; principal; 2020-03-01)
PROC: 0UN90ZZ Release Uterus, Open Approach (ICD-10-PCS; 2020-03-01)
PROC: 3E0R3BZ Introduction of Anesthetic Agent into Spinal Canal, Percutaneous Approach (ICD-10-PCS; 2020-03-01)
PROC: 00HU33Z Insertion of Infusion Device into Spinal Canal, Percutaneous Approach (ICD-10-PCS; 2020-03-01)
DX: O34.211 Maternal care for low transverse scar from previous cesarean delivery (principal); D62 Acute posthemorrhagic anemia; O16.4 Unspecified maternal hypertension, complicating childbirth; O99.214 Obesity complicating childbirth; O90.81 Anemia of the puerperium; O99.89 Other specified diseases and conditions complicating pregnancy, childbirth and the puerperium; L91.0 Hypertrophic scar; Z3A.39 39 weeks gestation of pregnancy; Z37.0 Single live birth
CPT/HCPCS: 36415; 85014; 85018; 85025; 86850; 86900; 86901; G0378; C1765; J0690; J1100; J1885; J2370; J2590; J2765; J3490; J7120; J7121

== ENCOUNTER 2022-01-25 12:24 | Outpatient (CLI) | payer MEDICAID ==
[2022-01-25] MEDS ORDERED: LACTATED RINGERS 1,000 ML IV ONE (13:30)
[2022-01-25 13:42] LABS: Hematocrit 36.3 % (30.3-42.9); Hemoglobin 12.1 gm/dl (10.1-14.3); Mean Corpuscular HGB Conc 33 % (30-34); Mean Corpuscular Volume 90 fl (79-97); Platelet Count 194 K/mm3 (140-440); Red Blood Count 4.06 M/mm3 (3.65-5.03); Red Cell Distribution Width 13.4 % (13.2-15.2)
[2022-01-25 14:10] LABS: Alanine Aminotransferase 15 units/L (7-56); Uric Acid 3.1 mg/dL (3.5-7.6)
[2022-01-25 15:14] VITALS: BP 133/80
[2022-01-25 16:14] LABS: Bacteria,Urine 1+ /HPF (Negative)
[2022-01-25 16:48] LABS: Creatinine,Urine 47.1 mg/dL (0.1-20.0); Protein/Creatinine Ratio,Urine 0.25
[2022-01-25 17:55] LABS: Bilirubin,Urine Negative (Negative); Color,Urine Yellow (Yellow)
[2022-01-25 17:56] LABS: Blood,Urine Negative (Negative); Protein,Urine <15 mg/dL mg/dL (Negative)
== END 2022-01-25 17:31 | disposition home or self-care (01) ==
LOC: TRG 12:24 → APU 12:26 → TRG 17:31
PROVIDERS: ATTEND Obstetrics & Gynecology
DX: O13.3 Gestational [pregnancy-induced] hypertension without significant proteinuria, third trimester (principal); Z3A.32 32 weeks gestation of pregnancy
CPT/HCPCS: 36415; 59025; 81001; 82565; 82570; 83615; 84156; 84450; 84460; 84550; 85027; 96360; 96365

== ENCOUNTER 2022-02-22 12:11 | Outpatient (CLI) | payer MEDICAID ==
[2022-02-22 13:50] LABS: Hematocrit 31.9 % (30.3-42.9); Mean Corpuscular HGB Conc 35 % (30-34); Mean Corpuscular Volume 88 fl (79-97); Platelet Count 171 K/mm3 (140-440); Red Blood Count 3.63 M/mm3 (3.65-5.03); Red Cell Distribution Width 13.8 % (13.2-15.2)
[2022-02-22 13:51] LABS: Bilirubin,Urine NEG (Negative); Blood,Urine NEG (Negative); Color,Urine Yellow (Yellow); Mucus,Urine FEW /HPF; Protein,Urine <15 mg/dL mg/dL (Negative); Urobilinogen,Urine < 2.0 mg/dL (<2.0)
[2022-02-22 14:02] LABS: Alanine Aminotransferase 11 units/L (7-56); Uric Acid 3.9 mg/dL (3.5-7.6)
[2022-02-22 14:20] VITALS: BP 120/67
[2022-02-22] MEDS ORDERED: LACTATED RINGERS 500 ML IV ONE (15:00)
== END 2022-02-22 14:45 | disposition home or self-care (01) ==
LOC: TRG 12:11 → APU 12:12 → TRG 14:45
PROVIDERS: ATTEND Obstetrics & Gynecology
DX: O09.93 Supervision of high risk pregnancy, unspecified, third trimester (principal); O13.3 Gestational [pregnancy-induced] hypertension without significant proteinuria, third trimester; Z3A.36 36 weeks gestation of pregnancy
CPT/HCPCS: 36415; 59025; 81001; 82565; 83615; 84450; 84460; 84550; 85027

== ENCOUNTER 2022-03-01 11:35 | Inpatient (IN) | payer MEDICAID ==
[2022-03-01 12:43] LABS: Bilirubin,Urine NEG (Negative); Blood,Urine NEG (Negative); Color,Urine Yellow (Yellow); Mucus,Urine FEW /HPF; Protein,Urine <15 mg/dL mg/dL (Negative); Urobilinogen,Urine < 2.0 mg/dL (<2.0)
[2022-03-01 13:22] LABS: Basophils % (Auto) 0.1 % (0.0-1.8); Eosinophils # (Auto) 0.1 K/mm3 (0.0-0.4); Eosinophils % (Auto) 0.7 % (0.0-4.3); Hematocrit 33.4 % (30.3-42.9); Hemoglobin 11.3 gm/dl (10.1-14.3); Lymphocytes # (Auto) 1.5 K/mm3 (1.2-5.4); Lymphocytes % (Auto) 17.6 % (13.4-35.0); Mean Corpuscular HGB Conc 34 % (30-34); Mean Corpuscular Volume 86 fl (79-97); Monocytes # (Auto) 0.6 K/mm3 (0.0-0.8); Platelet Count 180 K/mm3 (140-440); Red Blood Count 3.87 M/mm3 (3.65-5.03); Red Cell Distribution Width 13.6 % (13.2-15.2)
[2022-03-01 13:29] LABS: Alanine Aminotransferase 16 units/L (7-56); Albumin 3.6 g/dL (3.9-5); Blood Urea Nitrogen 4 mg/dL (7-17); Hemolysis Index 5; Uric Acid 3.7 mg/dL (3.5-7.6)
--- NOTE | 2022-03-01 13:30 | Ultrasound Report ---
ULTRASOUND OBSTETRIC LIMITED ULTRASOUND BIOPHYSICAL PROFILE INDICATION / CLINICAL INFORMATION: elevated B/P. Clinical Gestational Age (GA) in weeks, days: 37, 3 TECHNIQUE: Transabdominal. COMPARISON: None available. FINDINGS: BREATHING MOVEMENT = 2 GROSS BODY MOVEMENT = 2 TONE = 2 QUALITATIVE AMNIOTIC FLUID VOLUME = 2 TOTAL BIOPHYSICAL SCORE = 8/8 HEART RATE (beats per minute): 151 AMNIOTIC FLUID INDEX (cm) = 16 (normal = 7-24 cm) PRESENTATION: Cephalic. ADDITIONAL FINDINGS: None. IMPRESSION: 1. Biophysical Score = 8/8 2. Fetus is in a cephalic presentation. Amniotic fluid index is within normal limits. Signer Name: Chris Beaver MD Signed: 03/01/2022 1:26 PM Workstation Name: [id number]
[2022-03-01 13:45] LABS: BUN/Creatinine Ratio 10
[2022-03-01] MEDS ORDERED: LACTATED RINGERS 1,000 ML ONE ×3 (15:50→20:34)
[2022-03-01] MEDS ORDERED: FAMOTIDINE 20 MG/2 ML INJ IV SCH (15:57)
[2022-03-01] MEDS ORDERED: METOCLOPRAMIDE 10 MG/2 ML INJ IV SCH (15:57)
[2022-03-01] MEDS ORDERED: BICITRA ORAL LIQD 30ML PO SCH (15:57)
[2022-03-01] MEDS ORDERED: ceFAZolin/Water 2 GM/20 ML 2 GM/20 ML SYRINGE IV SCH (16:00)
[2022-03-01] MEDS ORDERED: OXYTOCIN DRIP 30 UNITS/500 ML BAG IV SCH (16:00)
[2022-03-01] MEDS ORDERED: LACTATED RINGERS 1,000 ML IV SCH (16:00)
--- NOTE | 2022-03-01 16:03 | History and Physical Report ---
History of Present Illness Date of examination: 03/01/22 Chief complaint: My blood pressure was high at my clinic appointment (148/100 per pt) History of present illness: @ 37.3wks with history of c/s x4 and advanced maternal age, sent from the office for elevated BP. Baby girl Asa is moving well. Denies vaginal bleeding, LOF, chest pain, SOB, headaches, vision changes, RUQ and NVD. E ndorsing mild contractions since 1300 today, PS: 6/10. BPP 8/8 today. Cat 1 FHT, regular cxs palpated mild occurring q3 min. Receiving 1L IVF presently. Mild range BP noted upon arrival to triage. Orders placed, pre-eclampsia labs collected, results pending. Of note, pt denies history of cHTN documented in chart and did not complete 24 hr urine this . Does report hx pre- eclampsia not requiring magnesium, in G3 . Plans to breastfeed (currently 1yo), desires contraception, undecided on method, does not desire BTL. NPO since last night. EDC Calculations by LMP: 03/19/2022 Past History : 6 Term Births: 4 Premature Births: 0 Living Children: 4 Para: 4 Mult. Births: 0 Prev : 4 Aborta: 1 Elect. Ab: 0 Spont. Ab: 1 Ectopics: 0 # 1 Delivery date: 06/06/2007 Weeks Gestation: 40.3 Delivery type: Anesthesia type: general Delivery location: [facility] Infant Sex: Male weight: 7-4 Name: Desmond Comments: Placental abruption # 2 Delivery date: 08/2013 Comments: 9 wks? blood disorder # 3 Delivery date: 03/13/2015 Weeks Gestation: 38 Delivery type: Anesthesia type: epidural Delivery location: [facility] Infant Sex: female weight: 9.69 Comments: none # 4 Delivery date: 07/03/2017 Weeks Gestation: 39 Delivery type: Anesthesia type: epidural Delivery location: [facility] Sex: male weight: 10.13 # 5 Delivery date: 03/01/2020 Weeks Gestation: 39 Delivery type: Anesthesia type: epidural Delivery location: [facility] Infant Sex: female weight: 9.56 Past Medical History: Reviewed and updated today: Hypertension- Patient denies Past Surgical History: Reviewed and updated today: C/S x 4 Excision keloid incision scar (07/03/2017) Risk Factors: Smoked Tobacco Use: Never smoker Smokeless Tobacco Use: Never HIV High Risk Behavior: no Seatbelt Use: 100 % PAP Smear History: Date of Last PAP Smear: 09/04/2019 Results: Normal Alcohol Use: no Drug Use: no Previous Tobacco Use: Signed On - 03/10/2020 Smoked Tobacco Use: Never smoker Smokeless Tobacco Use: Never Passive Smoke Exposure: no HIV High Risk Behavior: no Caffeine Use: 0 drinks per day Exercise: no Seatbelt Use: 100 % No Dietary Counseling Reason: pn yes Past Medical History: Anesthesia Complications: negative Anemia: negative Autoimmune Disorder: negative Bleeding Disorder: negative Blood Transfusions: negative Breast Disease: negative Diabetes: negative Heart Disease: negative Hypertension: positive Hepatitis/Liver Disease: negative Kidney Disease/UTI: negative Neurologic/Epilepsy/Migraines: negative Phlebitis/Varicosities: negative Psychiatric: negative Pulmonary Disease/Asthma: negative Thyroid Disease: negative Hospitalizations: negative Surgery (Non-printer maintainer): C/S x 4 Excision keloid incision scar(07/03/2017) Social Hx: Patient is single 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 No ETOH, Drugs, 1 dog, Lives in house with parents and children Infection History HIV Risk Eval: no Genetic History: ADVANCED MATERNAL AGE Congenital Heart Defect: Mom: no Tierra Disease: Mom: no Thalassemia Mom: no Neural Tube Defect Mom: no Down's Syndrome Mom: no Felix-Sachs Mom: no Sickle Cell Disease/Trait Mom: no Hemophilia Mom: no Muscular Dystrophy Mom: no Cystic Fibrosis Mom: no Massey Chorea Mom: no Mental Retardation Mom: no Fragile X Mom: no Other Genetic/Chromosomal Disorder Mom: no Child w/other defect Mom: no Environmental Exposures: Xray Exposure: no Medication, drug, or alcohol use since LMP: no Chemical/Other Exposure: no Exposure to Cat Liter: no Hx of Parvovirus (Fifth Disease): no 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 Allergies: No known allergies Past History Past Medical History: hypertension Past Surgical History: section (x4) Family/Genetic History: none Social history: single, lives with family - Obstetrical History Expected Date of Delivery: 03/19/22 Actual Gestation: 37 Week(s) 3 Day(s) : 6 Para: 4 Hx # Term Pregnancies: 4 Number of Pregnancies: 0 Spontaneous Abortions: 1 Induced : 0 Number of Living Children: 4 Medications and Allergies Allergies Allergy/AdvReac Type Severity Reaction Status Date / Time No Known Allergies Allergy Verified 08/30/13 11:07 Home Medications Medication Instructions Recorded Confirmed Last Taken Type Docusate Sodium [Colace] 100 mg PO BID PRN #30 capsule 07/03/17 03/03/20 Unknown Rx Ferrous Sulfate [Feosol 325 MG tab] 325 mg PO BID #90 tablet 07/03/17 03/03/20 Unknown Rx Ibuprofen [Motrin 800 MG tab] 800 mg PO TID PRN #30 tablet 07/03/17 03/03/20 Unknown Rx Lidocain2.5%/Prilocai2.5% [Emla] 5 gm TP ONCE #1 tube 07/03/17 03/03/20 Unknown Rx oxyCODONE /ACETAMINOPHEN [Percocet 1 - 2 tab PO Q4HR PRN #30 tablet 07/03/17 03/03/20 Unknown Rx 5/325 mg] Vit-Fe Fumar-FA [ 1 tab PO QDAY 07/05/17 03/03/20 07/02/17 History Vitamin] 1 tab Ibuprofen [Motrin 800 MG tab] 800 mg PO Q8HR PRN #30 tablet 03/03/20 Unknown Rx Active Meds: Active Medications Citric Acid/Sodium Citrate (Bicitra Oral Liqd 30ml) 30 ml PO ONCE ONE Stop: 03/01/22 15:58 Famotidine (Famotidine 20 Mg/2 Ml Inj) 20 mg IV ONCE ONE Stop: 03/01/22 15:58 Lactated Ringer's (Lactated Ringers) 1,000 mls @ 2,250 mls/hr IV PREOP JOCY Stop: 03/02/22 16:27 Oxytocin/Sodium Chloride (Pitocin/Ns 30 Unit/500ml) 30 units in 500 mls @ 0 mls/hr IV TITR JOCY; Protocol Cefazolin Sodium (Ancef/Sterile Water 2 Gm/20 Ml) 2 gm in 20 mls @ 80 mls/hr IV PREOP NR; Protocol Metoclopramide HCl (Metoclopramide 10 Mg/2 Ml Inj) 10 mg IV ONCE ONE Stop: 03/01/22 15:58 Review of Systems Breasts: deferred Rectal Exam: deferred - Vital Signs Vital signs: Vital Signs Pulse Pulse Ox 101 H 99 03/01/22 12:05 03/01/22 12:05 Temp Pulse Resp BP Pulse Ox 98.4 F 94 H 20 138/78 96 03/01/22 12:13 03/01/22 15:54 03/01/22 12:13 03/01/22 15:52 03/01/22 15:54 - Physical Exam Breasts: Positive: deferred Cardiovascular: Regular rate, Normal S1, Normal S2 Lungs: Positive: Clear to auscultation, Normal air movement Abdomen: Positive: normal appearance, soft (S+D; +FHTs) Extremities: Positive: normal Deep Tendon Reflex Grade: Normal +2 - Obstetrical FHR: category 1 Uterine Contraction Pattern: Regular Uterine Tone Measurement Phase: Resting Uterine Contraction Intensity: Mild Results Result Diagrams: 03/01/22 Unknown 03/01/22 Unknown Abnormal lab results 03/01/22 03/01/22 Range/Units Unknown Unknown Seg Neutrophils % 74.6 H (40.0-70.0) % Carbon Dioxide 20 L (22-30) mmol/L BUN 4 L (7-17) mg/dL Creatinine 0.4 L (0.6-1.2) mg/dL Alkaline Phosphatase 137 H (35-129) units/L Albumin 3.6 L (3.9-5) g/dL All other labs normal. Ultrasound: report reviewed Assessment and Plan A: 36 yo @ 37.3 wks History of c/s x4 chronic hypertension?, not on medication, pt denies history. Mild range BPs since arrival to triage, pre-eclampsia labs pending advanced maternal age Cat 1 FHT NPO since last night 02/28/22 P: Admit for delivery via . Timing of delivery dependent on availability of staff. cEFM Monitor VS Monitor for signs and symptoms of pre-eclampsia Remain NPO if delivery planned for tonight. Otherwise, in the setting of stable VS, regular diet now and then NPO after midnight for planned c/s tomorrow AM on 03/02/22 - Patient Problems (1) 37 weeks gestation of Current Visit: Yes Status: Acute (2) HTN (hypertension) Current Visit: Yes Status: Chronic (3) Previous section Onset Date: ~2006 Current Visit: Yes Status: Chronic
[2022-03-01] MEDS ORDERED: SODIUM CHLORIDE 0.9% 500 ML 500 ML IV SCH (16:22)
--- NOTE | 2022-03-01 16:39 | Event Note ---
Date: 03/01/22 C/s called when pt as admitted due to Gest HTN superimposed on CHTN. I spoke with the charge nurse and was told that due to staffing at this time, we are not able to do the c/s. Currently blood pressures are not in the sever ranges and there is no signs of distress. Will con't observation until c/s is done.
--- NOTE | 2022-03-01 18:30 | Anesthesia Day of Surgery ---
Anesthesia Day of Surgery - Day of Surgery Patient Examined: Yes Patient H&P Reviewed: Yes Patient is NPO: Yes
--- NOTE | 2022-03-01 18:31 | Anesthesia Consultation ---
Anesthesia Consult and Med Hx Date of service: 03/01/22 - Airway Anesthetic Teeth Evaluation: Poor ROM Head & Neck: Adequate Mental/Hyoid Distance: Adequate Mallampati Class: Class II Intubation Access Assessment: Probably Good - Pulmonary Exam CTA: Yes - Cardiac Exam Cardiac Exam: RRR - Pre-Operative Health Status ASA Pre-Surgery Classification: ASA3 Proposed Anesthetic Plan: Epidural, Spinal - Pulmonary Hx Smoking: No Hx Asthma: No COPD: No Hx Pneumonia: No - Cardiovascular System Hx Hypertension: Yes (PIH 2014) - Central Nervous System Hx Seizures: No Hx Back Pain: Yes Hx Psychiatric Problems: No - Endocrine Hx Renal Disease: No Hx End Stage Renal Disease: No Hx Insulin Dependent Diabetes: No Hx Non-Insulin Dependent Diabetes: No Hx Hypothyroidism: No Hx Hyperthyroidism: No - Hematic Hx Anemia: No Hx Sickle Cell Disease: No - Other Systems Hx Alcohol Use: No Hx Obesity: Yes
[2022-03-01] MEDS ORDERED: BUPIVACAINE /DEX-WATER 0.75% (2 ML) AMPULE INFILTRATI ONE (19:26)
[2022-03-01] MEDS ORDERED: CARBOPROST TROMETHAMINE 250 MCG/1 ML INJ IM ONE (19:39)
[2022-03-01] MEDS ORDERED: miSOPROStol 200 MCG TAB ONE (19:40)
[2022-03-01] MEDS ORDERED: LOPERAMIDE 2 MG CAP PO PRN (19:46)
[2022-03-01] MEDS ORDERED: WATER FOR IRRIG STERILE 1,500 ML BOTTLE IR ONE (19:50)
[2022-03-01] MEDS ORDERED: SODIUM CHLORIDE 0.9% IRR 1,500 ML BOTTLE IR ONE (19:50)
[2022-03-01] MEDS ORDERED: ceFAZolin/STERILE WATER 2 GM/20 ML SYRINGE IV ONE (19:50)
[2022-03-01] MEDS ORDERED: MORPHINE PF 10MG/10 ML AMPULE ONE (20:25)
[2022-03-01] MEDS ORDERED: hydrALAZINE 20 MG/1 ML INJ ONE (20:48)
[2022-03-01] MEDS ORDERED: ONDANSETRON 4 MG/2 ML INJ ONE (21:12)
[2022-03-01] MEDS ORDERED: PHENYLEPHRINE/NS 1,000 MCG/10 ML SYRINGE (OR USE) IV ONE (21:12)
[2022-03-01] MEDS ORDERED: MAGNESIUM HYDROXIDE (MOM) ORAL LIQD UDC PO PRN (21:18)
[2022-03-01] MEDS ORDERED: LANOLIN/ZINC/DIMETHICONE (LANSINOH) 7 GM TP PRN (21:18)
[2022-03-01] MEDS ORDERED: NALOXONE 0.4 MG/1 ML INJ IV PRN (21:18)
[2022-03-01] MEDS ORDERED: ACETAMINOPHEN 325 MG TAB PO PRN (21:18)
[2022-03-01] MEDS ORDERED: WITCH HAZEL/ GLYCERIN PAD TP PRN (21:18)
[2022-03-01] MEDS ORDERED: MORPHINE 4 MG/1 ML INJ IV PRN (21:18)
[2022-03-01] MEDS ORDERED: KETOROLAC 30 MG/1 ML INJ IV PRN (21:18)
--- NOTE | 2022-03-01 21:29 | Progress Note ---
Spinal Anesthesia Block - Spinal Anesthesia Block Start Time: 19:35 Stop Time: 19:40 Performed by:: NATHANIEL UGAN Procedure: Patient is requesting epidural for labor pain. H&P and labs reviewed. Procedure explained, questions answered, consent obtained. Patient placed in sitting position with monitors applied. Timeout performed immediately before start of procedure. Prep/drape in usual sterile fashion. Skin localized 3 mL 1% lidocaine at L[3]-L[4] interspace. 17-gauge Tuohy epidural needle advanced to [place] with saline at [8] cm. No blood/CSF noted via epidural needle. 24g spinal needle advanced into intrathecal space until clear, free flowing CSF noted. 1.4mL 0.75% hyperbaric bupivacaine + 0.10mcg Precedex injected into intrathecal space. Spinal needle removed and epidural catheter advanced to [12] cm. Negative aspiration for blood and CSF via catheter. Sterile dressing applied followed by tape reinforcement. Patient tolerated procedure well. No immediate complications noted. T4 Level
--- NOTE | 2022-03-01 21:32 | Operative Report ---
Operative Report Operative Report: Date of procedure: 03/01/2022 Pre-operative diagnosis: 37 weeks gestation Chronic hypertension Superimposed gestational hypertension Previous section x4 Post-operative diagnosis: Same Procedure name(s): Repeat low transverse section via Pfannenstiel skin incision Surgeon: Dr. Jenkins Candle Molder: AN Anesthesia: Combined spinal epidural EBL: QBL: 998 mL Urine output: Approximately 400 cc of clear urine out at the end of the procedure Fluids: 2300ml Findings: Liveborn female infant Apgars of 9 and 9 at 1 and 5 minutes weight 7 pounds 10 ounces Dense adhesions of the uterus anterior to the posterior rectal muscle and fascia Grossly normal fallopian tubes and ovaries bilaterally Indications: Patient with a history of chronic hypertension presented to the office for routine follow-up. Patient was noted to have elevated blood pressures. Patient was not on any medications on a and she has been normotensive. For the last several visits the patient was noted to have blood pressures ranging 140s over 90s. On one admission to triage patient continued to have elevated blood pressures. Therefore patient was delivered due to superimposed gestational hypertension. All risk benefits and alternatives were discussed with the patient consents were signed and placed on the chart. Procedure: Patient was taking to the operating room. Patient was then prepped and draped in sterile fashion after anesthesia was found to be adequate. A low transverse skin incision was made with the scalpel through previous incisional scar and carried down to the underlying layer of fascia with the Bovie. The fascia was then incised in the midline and this incision was extended bilaterally with the Bovie. The superior aspect of the fascia was grasped with Angela clamps tented upward and dissected off of the anterior rectus muscles with the scalpel. In similar fashion the inferior aspect of the fascia was grasped with Angela clamps tented upward and dissected off of the anterior rectus muscles. The rectus muscles were then bluntly divided in the midline. T he peritoneum was identified and entered into sharply. The Devang retractor was placed. A lower transverse uterine incision was made with the scalpel and extended bilaterally with blunt dissection artificial rupture of membranes was performed yielding [clear amniotic fluid]. The infant's head was then delivered atraumatically. The anterior shoulder and rest of infant delivered without difficulty. The umbilical cord was clamped x2. The cord was cut. The infant was then placed in sterile bassinet. The placenta was manually extracted in its entirety. The uterus was exteriorized and cleared of all clots and debris. Care was taken to be sure that all surfaces of the uterus had a gritty texture. The uterine incision was closed using 0 Vicryl in a running locking fashion. [ A second imbricating layer of the same suture was then created.] Patient was noted to have bleeding from the anterior surface of the uterus where scar tissue had been dissected. 3-0 Vicryl using [id number] sutures was used to secure excellent hemostasis. Interceed was placed over the anterior surface of the uterus as well as along the uterine incision. The posterior cul-de-sac was copiously irrigated. The uterus was returned to the abdomen. The gutters were also irrigated. The anterior rectus muscles were reapproximated using 3-0 Vicryl. The anterior rectus fascia was reapproximated using 0 Vicryl in a running fashion. The subcuticular fat was reapproximated using 2-0 Vicryl in a running fashion. The skin was reapproximated with 4-0 Monocryl in a subcuticular stitch. The patient tolerated the procedure well. Sponge lap and needle counts were all correct x3. Patient was taken to the recovery room awake and in stable condition.
--- NOTE | 2022-03-01 21:46 | Event Note ---
Date: 03/01/22 Called to bedside due to pt having hypotension MAP is 60 to 61 and increasing as provider was at the bedside. No vaginal bleeding noted. Abdomen soft and distended. Uterus firm and at the umbilicus. No blood clots expressed with uterine massage from the vagina. Will hold the tap block at this time as well as the magnesium and the labetalol. This is believed to be due to the sedation medications pt had during the procedure. Will close monitor. If continues to equilibrate, will hold the ephedrine. but if still hypotensive ie MAB <60 will give the ephedrine. Plan of care d/w with BEAD FLIPPER, RN as well as pt mother who are all at the bedside. All questions were addressed and answered.
[2022-03-01] MEDS ORDERED: MAGNESIUM SULFATE 40GM/1000ML 40 GM/1,000 ML BAG IV SCH (22:00)
--- NOTE | 2022-03-01 23:48 | Event Note ---
Date: 03/01/22 Called by RN due to patient passing clots with fundal massage. Pt awake and oriented. She denies any sob or chest pain. Pt blood pressure has returned to normal and is not elevated at this time. Pulse is midly elevated in low 100s to one-teens bupr this is pt baseline prior to surgery. She does c/o cramping and pressure with fundal massage. Upon initial exam, fundus was not firm and a small amount of blood was expressed from vagina with massage. With massage uterus fundus became firm and with bimanual exam no clots were expressed from the vagina. Cervix is 1cm but lower segment feels firm. Cytotec 800 placed RI. Hemobate ordered prior to the section along with cytotec and is a bedside. Fundus is firm at this time after medication was given and RN palpated and agrees fundus is firm and below the umbilicus. Abdomen is soft and not distended. Dressing is intact and no bleeding noted to be coming from around the dressing. Pt has severe separatcion of the rectus muscles and poor abdominal support due to previous surgeries and pregnancies. The fundus is only felt with deep palpation. I d/w pt that at this time we are monitoring her bleeding but she is at risk again for delayed pph, re-operation via dilitation and currettage or hysterectomy, or UAE if thought to have ongoing bleeding. CBC and co-ags ordered at this time. When provider left room,there was no bleeding on padding and fundus was firm. RN to call provider should bleeding become brisk or pt passing clots. What was noted appeared to be dark old blood. Pt and mother expressed understanding and all questions were addressed and answered.
--- NOTE | 2022-03-02 00:18 | Event Note ---
Date: 03/02/22 Provider at bedside and pt states she is feeling well sitting in bed holding baby. No c/o at this time. Fundus remains firm at umbilicus. Blood noted on the padding to be mild but no clots expressed from vagina and no active vaginal bleeding upon fundal palpation at this time. Will await labs and cont close observation at this time.
[2022-03-02 00:43] LABS: Hematocrit 30.7 % (30.3-42.9); Hemoglobin 10.1 gm/dl (10.1-14.3); Mean Corpuscular HGB Conc 33 % (30-34); Mean Corpuscular Volume 87 fl (79-97); Platelet Count 181 K/mm3 (140-440); Red Blood Count 3.53 M/mm3 (3.65-5.03); Red Cell Distribution Width 13.7 % (13.2-15.2)
[2022-03-02 00:51] LABS: INR 1.03 (0.87-1.13); Partial Thromboplastin Time 25.4 Sec. (24.2-36.6)
--- NOTE | 2022-03-02 08:58 | Post Anesthesia Evaluation ---
- Post Anesthesia Evaluation Patient Participated: Yes Airway Patent: Yes Stable Respiratory Function: Yes Nausea/Vomiting: No Temp > 96.8F: Yes Pain Manageable: Yes Adequeate Hydration: Yes Anesthesia Complications: No Block Receding Appropriately: Yes Patient on Ventilator: No
[2022-03-02] MEDS ORDERED: SODIUM CHLORIDE 0.9% 1000 ML IV SOLN IV SCH (10:15)
[2022-03-02] MEDS: ceFAZolin/NS 1 GM/50 ML 1 GM/50 ML BAG IV SCH ×2 (10:26→18:15)
[2022-03-02] MEDS: IBUPROFEN 800 MG TAB PO PRN (10:26)
[2022-03-02] MEDS: FERROUS SULFATE 325 MG TAB PO SCH (10:26)
[2022-03-02] MEDS ORDERED: SODIUM CHLORIDE 0.9% 1000 ML 1,000 ML IV SCH (11:00)
[2022-03-02 11:30] LABS: Hematocrit 27.3 % (30.3-42.9); Hemoglobin 9.4 gm/dl (10.1-14.3)
--- NOTE | 2022-03-02 14:03 | Progress Note ---
Assessment and Plan A: 36 yo post op day 1 from repeat c/s history of c/s x5 PPH - 998mL during operative period + additional blood loss (not quantified) during initial period acute blood loss anemia (H&H: 9/4.27.3 as of 1100 on 03/02; admission H&H: 11.3/33.4 on 03/01) chronic hypertension, BPs normotensive in the period P: Monitor for signs and symptoms of continued bleeding Monitor VS Advance to regular diet now Anticipate flatus Encourage increased ambulation as tolerated - Patient Problems (1) 37 weeks gestation of Current Visit: Yes Status: Acute (2) HTN (hypertension) Current Visit: Yes Status: Chronic (3) Previous section Onset Date: ~2006 Current Visit: Yes Status: Chronic Subjective - Subjective Date of service: 03/02/22 Principal diagnosis: c/s post op day 1 Interval history: @ 37.3wks with history of c/s x4 and advanced maternal age, sent from the office for elevated BP. Baby girl Asa is moving well. Denies vaginal bleed ing, LOF, chest pain, SOB, headaches, vision changes, RUQ and NVD. Endorsing mild contractions since 1300 today, PS: 6/10. BPP 8/8 today. Cat 1 FHT, regular cxs palpated mild occurring q3 min. Receiving 1L IVF presently. Mild range BP noted upon arrival to triage. Orders placed, pre-eclampsia labs collected, results pending. Of note, pt denies history of cHTN documented in chart and did not complete 24 hr urine this . Does report hx pre-eclampsia not requiring magnesium, in G3 . Plans to breastfeed (currently 2yo), desires contraception, undecided on method, does not desire BTL. NPO since last night. EDC Calculations by LMP: 03/19/2022 Past History : 6 Term Births: 4 Premature Births: 0 Living Children: 4 Para: 4 Mult. Births: 0 Prev : 4 Aborta: 1 Elect. Ab: 0 Spont. Ab: 1 Ectopics: 0 # 1 Delivery date: 06/06/2007 Weeks Gestation: 40.3 Delivery type: Anesthesia type: general Delivery location: [facility] Sex: Male weight: 7-4 Name: Desmond Comments: Placental abruption # 2 Delivery date: 08/2013 Comments: 9 wks? blood disorder # 3 Delivery date: 03/13/2015 Weeks Gestation: 38 Delivery type: Anesthesia type: epidural Delivery location: [facility] Sex: female weight: 9.69 Comments: none # 4 Delivery date: 07/03/2017 Weeks Gestation: 39 Delivery type: Anesthesia type: epidural Delivery location: [facility] Infant Sex: male weight: 10.13 # 5 Delivery date: 03/01/2020 Weeks Gestation: 39 Delivery type: Anesthesia type: epidural Delivery location: [facility] Sex: female weight: 9.56 Past Medical History: Reviewed and updated today: Hypertension- Patient denies Past Surgical History: Reviewed and updated today: C/S x 4 Excision keloid incision scar (07/03/2017) Risk Factors: Smoked Tobacco Use: Never smoker Smokeless Tobacco Use: Never HIV High Risk Behavior: no Seatbelt Use: 100 % PAP Smear History: Date of Last PAP Smear: 09/04/2019 Results: Normal Alcohol Use: no Drug Use: no Previous Tobacco Use: Signed On - 03/10/2020 Smoked Tobacco Use: Never smoker Smokeless Tobacco Use: Never Passive Smoke Exposure: no HIV High Risk Behavior: no Caffeine Use: 0 drinks per day Exercise: no Seatbelt Use: 100 % No Dietary Counseling Reason: pn yes Past Medical History: Anesthesia Complications: negative Anemia: negative Autoimmune Disorder: negative Bleeding Disorder: negative Blood Transfusions: negative Breast Disease: negative Diabetes: negative Heart Disease: negative Hypertension: positive Hepatitis/Liver Disease: negative Kidney Disease/UTI: negative Neurologic/Epilepsy/Migraines: negative Phlebitis/Varicosities: negative Psychiatric: negative Pulmonary Disease/Asthma: negative Thyroid Disease: negative Hospitalizations: negative Surgery (Non-crane assembler): C/S x 4 Excision keloid incision scar(07/03/2017) Social Hx: Patient is single 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 No ETOH, Drugs, 1 dog, Lives in house with parents and children Infection History HIV Risk Eval: no Genetic History: ADVANCED MATERNAL AGE Congenital Heart Defect: Mom: no [place] Disease: Mom: no Thalassemia Mom: no Neural Tube Defect Mom: no Down's Syndrome Mom: no Felix-Sachs Mom: no Sickle Cell Disease/Trait Mom: no Hemophilia Mom: no Muscular Dystrophy Mom: no Cystic Fibrosis Mom: no [place] Chorea Mom: no Mental Retardation Mom: no Fragile X Mom: no Other Genetic/Chromosomal Disorder Mom: no Child w/other defect Mom: no Environmental Exposures: Xray Exposure: no Medication, drug, or alcohol use since LMP: no Chemical/Other Exposure: no Exposure to Cat Liter: no Hx of Parvovirus (Fifth Disease): no 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 Allergies: No known allergies Patient reports: voiding normally, pain well controlled, ambulating normally, no dizzy ambulation, no bowel movement, no nauseated : doing well, nursing well (LATCH score 8/8) Objective - Vital Signs Latest vital signs: Vital Signs Temp Pulse Resp BP BP Pulse Ox Pulse Ox 03/02/22 11:36 98.2 F 89 18 125/84 98 03/02/22 10:27 97 H 109/85 03/02/22 08:44 100 03/02/22 08:00 98.3 F 97 H 18 109/85 100 03/02/22 07:37 94 H 96 03/02/22 07:32 103 H 96 03/02/22 07:27 104 H 96 03/02/22 07:25 91 H 124/75 03/02/22 07:22 97 H 96 03/02/22 07:17 107 H 96 03/02/22 07:12 95 H 96 03/02/22 07:07 98 H 97 03/02/22 07:05 106 H 128/88 03/02/22 07:02 102 H 96 03/02/22 06:57 100 H 97 03/02/22 06:52 94 H 98 03/02/22 06:47 100 H 96 03/02/22 06:45 96 H 121/78 03/02/22 06:42 100 H 96 03/02/22 06:37 93 H 96 03/02/22 06:32 107 H 97 03/02/22 06:27 97 H 96 03/02/22 06:25 98 H 120/76 03/02/22 06:22 103 H 96 03/02/22 06:17 104 H 96 03/02/22 06:12 101 H 97 03/02/22 06:07 105 H 96 03/02/22 06:05 94 H 127/74 03/02/22 06:02 105 H 97 03/02/22 05:57 104 H 96 03/02/22 05:52 91 H 97 03/02/22 05:47 100 H 97 03/02/22 05:45 99 H 120/81 03/02/22 05:42 98 H 97 03/02/22 05:37 93 H 97 03/02/22 05:32 93 H 97 03/02/22 05:27 92 H 96 03/02/22 05:25 89 111/63 03/02/22 05:22 95 H 97 03/02/22 05:17 97 H 97 03/02/22 05:12 87 98 03/02/22 05:07 84 97 03/02/22 05:05 85 116/62 03/02/22 05:02 89 98 03/02/22 04:57 96 H 97 03/02/22 04:52 95 H 99 03/02/22 04:47 111 H 99 03/02/22 04:45 96 H 106/61 03/02/22 04:42 96 H 96 03/02/22 04:37 101 H 97 03/02/22 04:35 91 H 94 03/02/22 04:32 93 H 96 03/02/22 04:27 111 H 98 03/02/22 04:25 90 113/60 03/02/22 04:22 100 H 96 03/02/22 04:17 103 H 97 03/02/22 04:12 91 H 96 03/02/22 04:09 97.0 F L 03/02/22 04:07 94 H 96 03/02/22 04:05 94 H 118/71 03/02/22 04:02 104 H 97 03/02/22 03:57 99 H 96 03/02/22 03:52 98 H 96 03/02/22 03:47 100 H 96 03/02/22 03:45 96 H 115/75 03/02/22 03:42 98 H 96 03/02/22 03:37 98 H 96 03/02/22 03:32 104 H 97 03/02/22 03:27 112 H 97 03/02/22 03:25 115 H 134/88 03/02/22 03:22 103 H 97 03/02/22 03:17 99 H 97 03/02/22 03:13 91 H 94 03/02/22 03:12 95 H 95 03/02/22 03:08 92 H 94 03/02/22 03:07 92 H 95 03/02/22 03:05 93 H 115/73 03/02/22 03:02 95 H 95 03/02/22 02:57 89 96 03/02/22 02:56 95 H 94 03/02/22 02:52 97 H 94 03/02/22 02:50 92 H 94 03/02/22 02:47 96 H 95 03/02/22 02:45 96 H 118/74 03/02/22 02:44 98 H 94 03/02/22 02:42 102 H 94 03/02/22 02:38 99 H 94 03/02/22 02:37 103 H 96 03/02/22 02:32 98 H 97 03/02/22 02:27 93 H 97 03/02/22 02:22 97 H 97 03/02/22 02:17 94 H 97 03/02/22 02:13 108 H 94 03/02/22 02:12 105 H 95 03/02/22 02:08 102 H 91 03/02/22 02:07 105 H 94 03/02/22 02:05 94 H 116/77 03/02/22 02:02 97 H 96 03/02/22 01:57 105 H 96 03/02/22 01:52 110 H 94 03/02/22 01:51 97.7 F 03/02/22 01:50 98 H 94 03/02/22 01:47 98 H 96 03/02/22 01:44 93 H 120/77 03/02/22 01:42 98 H 94 03/02/22 01:40 99 H 94 03/02/22 01:37 105 H 96 03/02/22 01:35 95 H 94 03/02/22 01:32 110 H 97 03/02/22 01:29 108 H 94 03/02/22 01:27 98 H 95 03/02/22 01:25 104 H 117/72 03/02/22 01:22 94 H 95 03/02/22 01:17 93 H 94 03/02/22 01:16 96 H 94 03/02/22 01:12 95 H 95 03/02/22 01:10 93 H 94 03/02/22 01:07 93 H 95 03/02/22 01:05 93 H 115/66 03/02/22 01:04 103 H 94 03/02/22 01:02 97 H 96 03/02/22 00:57 102 H 95 03/02/22 00:54 109 H 94 03/02/22 00:52 108 H 96 03/02/22 00:48 104 H 94 03/02/22 00:47 107 H 96 03/02/22 00:46 111 H 124/74 03/02/22 00:42 111 H 97 03/02/22 00:37 106 H 97 03/02/22 00:32 106 H 97 03/02/22 00:27 99 H 98 03/02/22 00:25 99 H 109/68 03/02/22 00:22 98 H 98 03/02/22 00:17 109 H 98 03/02/22 00:12 109 H 98 03/02/22 00:07 110 H 98 03/02/22 00:05 101 H 117/70 03/02/22 00:02 102 H 98 03/01/22 23:57 108 H 98 03/01/22 23:52 104 H 98 03/01/22 23:47 107 H 98 03/01/22 23:45 100 H 113/70 03/01/22 23:42 106 H 98 03/01/22 23:37 102 H 98 03/01/22 23:32 108 H 99 03/01/22 23:27 101 H 97 03/01/22 23:25 107 H 110/61 03/01/22 23:22 109 H 95 03/01/22 23:18 106 H 119/67 03/01/22 23:17 113 H 96 03/01/22 23:12 109 H 96 03/01/22 23:07 112 H 97 03/01/22 23:02 114 H 97 03/01/22 22:59 113 H 121/65 03/01/22 22:57 109 H 98 03/01/22 22:52 102 H 98 03/01/22 22:47 110 H 97 03/01/22 22:42 105 H 116/65 98 03/01/22 22:22 98.5 F 03/01/22 22:20 98.5 F 92 H 21 121/72 98 03/01/22 22:15 101 H 20 118/67 98 03/01/22 22:00 99 H 16 90/48 96 03/01/22 21:45 86 16 88/45 95 03/01/22 21:30 83 17 92/52 96 03/01/22 21:25 84 19 101/51 98 03/01/22 21:21 84 19 104/55 97 03/01/22 21:17 98.1 F 03/01/22 19:00 97 03/01/22 18:14 102 H 97 03/01/22 18:09 101 H 99 03/01/22 18:07 90 140/79 03/01/22 18:04 93 H 97 03/01/22 17:59 91 H 97 03/01/22 17:57 94 H 94 03/01/22 17:54 97 H 96 03/01/22 17:52 93 H 138/80 93 03/01/22 17:49 95 H 97 03/01/22 17:44 92 H 96 03/01/22 17:39 93 H 97 03/01/22 17:37 93 H 145/84 03/01/22 17:34 92 H 97 03/01/22 17:29 94 H 97 03/01/22 17:24 92 H 97 03/01/22 17:22 96 H 138/79 03/01/22 17:19 97 H 97 03/01/22 17:14 96 H 99 03/01/22 17:09 91 H 98 03/01/22 17:07 99 H 144/81 03/01/22 17:04 95 H 98 03/01/22 16:59 99 H 98 03/01/22 16:54 95 H 99 03/01/22 16:52 94 H 142/83 03/01/22 16:49 101 H 98 03/01/22 16:44 97 H 98 03/01/22 16:39 97 H 98 03/01/22 16:37 94 H 147/83 03/01/22 16:34 94 H 98 03/01/22 16:29 90 98 03/01/22 16:24 94 H 97 03/01/22 16:22 90 153/86 03/01/22 16:19 94 H 95 03/01/22 16:14 94 H 94 03/01/22 16:11 93 H 91 03/01/22 16:09 93 H 96 03/01/22 16:07 92 H 136/76 03/01/22 16:04 90 97 03/01/22 15:59 94 H 97 03/01/22 15:54 94 H 96 03/01/22 15:52 94 H 138/78 03/01/22 15:49 94 H 98 03/01/22 15:44 101 H 97 03/01/22 15:39 96 H 98 03/01/22 15:38 92 H 136/78 03/01/22 15:34 101 H 97 03/01/22 15:29 100 H 97 03/01/22 15:24 101 H 97 03/01/22 15:22 93 H 151/86 03/01/22 15:19 104 H 98 03/01/22 15:14 95 H 97 03/01/22 15:09 96 H 97 03/01/22 15:07 92 H 137/78 03/01/22 15:04 93 H 97 03/01/22 14:59 95 H 97 03/01/22 14:54 91 H 97 03/01/22 14:53 90 130/75 03/01/22 14:49 97 H 97 03/01/22 14:44 94 H 97 03/01/22 14:39 89 96 03/01/22 14:29 95 H 94 03/01/22 14:25 86 95 03/01/22 14:22 89 141/80 92 03/01/22 14:20 88 95 03/01/22 14:15 93 H 95 03/01/22 14:14 95 H 93 03/01/22 14:10 89 95 03/01/22 14:07 89 135/84 94 03/01/22 14:05 90 94 03/01/22 14:00 92 H 97 Intake and Output 03/01/22 03/02/22 03/02/22 23:59 07:59 15:59 Intake Total 2300 600 Output Total 1000 Balance 1300 600 Intake: IV 2300 Oral 240 Intake, Free Water 360 Output: Urine 1000 Indwelling 600 Other: Total, Intake Amount 240 Weight 92.986 kg Estimated Blood Loss 998 - Exam Narrative Exam: Upon entering room, 36yo post op day 1 from repeat c/s (hx of c/s x5), sitting upright in bed. Baby Asa in [place] at bedside, hearing screening underway. Denies heavy vaginal bleeding/ clots, chest pain, dizziness, SOB, headaches, vision changes, fever/chills and nausea. Lower abdominal pressure dressing dry and intact, abdominal binder in place. Abdominal exam notable for significant diastasis recti, +4 above and below umbilicus with umbilical hernia palpated. Fundus firm, 1/U, midline, bleeding scant, no clots noted. Bowel sounds appreciated +4 quadrants. Peripad in place recently changed, drops of bright red blood noted on peripad. Pain is adequately controlled by current regimen. Tolerating PO liquids, voided x2 this AM, ambulating without difficulty. Not yet passing gas. Has not yet had bowel movement. Requesting regular diet, order already placed, to contact RN for dietary services. Iced water brought to bedside. session on L breast observed, LATCH score 8/8. Goals for today reviewed: advance to regular diet, increase ambulation as tolerated, monit or VS, on demand, warning signs discussed. Pt verbalized understanding of POC, states no questions or concerns at this time, expressed gratitude for care provided. Breasts: Present: normal, . Absent: discharge, pain, nipple abnormal, axillary nodes Cardiovascular: Present: Regular rate, Normal S1, Normal S2 Lungs: Present: Clear to auscultation, Normal air movement Abdomen: Present: soft, normal bowel sounds, hernia (umbilical hernia noted), other (+4 diastasis recti above and below umbilicus). Absent: distention, tenderness Vulva: both: normal Uterus: Present: firm, fundal height above umbilicus. Absent: bogginess Extremities: Present: normal Deep Tendon Reflex Grade: Normal +2 Incision: Present: normal, dry, intact, dressed (sterile pressure dressing in place; abdominal binder in place) - Labs Labs: Abnormal lab results 03/01/22 03/02/22 03/02/22 Range/Units 15:00 00:10 00:10 WBC 11.1 H (4.5-11.0) K/mm3 RBC 3.53 L (3.65-5.03) M/mm3 Hgb (10.1-14.3) gm/dl Hct (30.3-42.9) % D-Dimer 4493.12 H (0-234) ng/mlDDU Crossmatch See Detail 03/02/22 Range/Units 11:04 WBC (4.5-11.0) K/mm3 RBC (3.65-5.03) M/mm3 Hgb 9.4 L (10.1-14.3) gm/dl Hct 27.3 L (30.3-42.9) % D-Dimer (0-234) ng/mlDDU Crossmatch
[2022-03-02] MEDS ORDERED: ceFAZolin/NS 1 GM/50 ML 1 GM/50 ML BAG IV SCH (18:00)
[2022-03-03] MEDS: HYDROcodone/ACETAMINOPHEN 5-325 MG TAB PO PRN (00:30)
[2022-03-03] MEDS: IBUPROFEN 800 MG TAB PO PRN ×4 (01:56→20:30)
[2022-03-03] MEDS ORDERED: TETANUS,DIPH,PERTUSS(ACELL) VACCINE 0.5 ML SYRINGE IM ONE (06:00)
[2022-03-03] MEDS: FERROUS SULFATE 325 MG TAB PO SCH (09:28)
--- NOTE | 2022-03-03 09:35 | Progress Note ---
Assessment and Plan Pt denies [place], vision changes, and RUQ pain. Reports ambulating with abdominal binder on, eating, voiding, and infant without difficulty. POC and precautions d/w pt. Questions encouraged and addressed. Pt verbalizes understanding. - Patient Problems (1) HTN (hypertension) Current Visit: Yes Status: Chronic Plan to address problem: continue labetalol 200mg BID monitor BP and ssx for worsening status (2) delivery delivered Current Visit: No Status: Acute Plan to address problem: continue postoperative pathway anticipate discharge home tomorrow Dr Hodge aware Subjective - Subjective Date of service: 03/03/22 Principal diagnosis: c/s post op day 2 Patient reports: appetite normal, voiding normally, pain well controlled, ambulating normally [place]: doing well Objective - Vital Signs Latest vital signs: Vital Signs Temp Pulse Resp BP Pulse Ox Pulse Ox 03/03/22 09:28 88 157/80 03/03/22 08:30 98.3 F 88 20 157/80 99 03/03/22 01:46 98.3 F 94 H 18 130/83 99 03/03/22 00:30 18 99 03/02/22 21:21 98 H 127/88 03/02/22 21:17 99.1 F 98 H 18 127/88 97 03/02/22 19:30 99 03/02/22 16:10 98.7 F 95 H 20 123/86 97 03/02/22 11:36 98.2 F 89 18 125/84 98 03/02/22 10:27 97 H 109/85 Intake and Output 03/02/22 03/03/22 03/03/22 23:59 07:59 15:59 Intake Total 600 360 Output Total 200 Balance 400 360 Intake: Oral 240 Intake, Free Water 360 360 Output: Urine 200 Void 200 Other: Total, Intake Amount 240 Total, Output Amount 200 # Voids Void 300 1 - Exam Breasts: Present: normal Cardiovascular: Present: Regular rate Lungs: Present: Normal air movement Abdomen: Present: normal appearance, soft. Absent: distention, tenderness, guarding Vulva: both: normal Uterus: Present: normal, firm Extremities: Present: normal Incision: Present: normal, dry, intact - Labs Labs: Abnormal lab results 03/02/22 Range/Units 11:04 Hgb 9.4 L (10.1-14.3) gm/dl Hct 27.3 L (30.3-42.9) %
[2022-03-04] MEDS: IBUPROFEN 800 MG TAB PO PRN ×3 (03:00→22:34)
[2022-03-04] MEDS: FERROUS SULFATE 325 MG TAB PO SCH (10:24)
--- NOTE | 2022-03-04 13:10 | Progress Note ---
Assessment and Plan POC d/w pt. Pt received new increased dose of Labetalol 300mg @1024 today. Pt denies vision changes and RUQ pain. Reports new onset of heart palpitations, SOB, sweating, and dull frontal headache. Pt attributing this to labetalol increase. Pt teary and states, "I think it also made me depressed". Dr. Jenkins notified and orders received. Primary RN made aware. - Patient Problems (1) HTN (hypertension) Current Visit: Yes Status: Chronic Plan to address problem: monitor BP and ssx for worsening status (2) delivery delivered Current Visit: No Status: Acute Plan to address problem: continue postoperative pathway Subjective - Subjective Date of service: 03/04/22 Principal diagnosis: c/s post op day 3 Patient reports: voiding normally, pain well controlled, ambulating normally [place]: doing well Objective - Vital Signs Latest vital signs: Vital Signs Temp Pulse Resp BP BP Pulse Ox Pulse Ox 03/04/22 10:24 20 03/04/22 08:32 98.3 F 96 H 18 132/89 100 03/04/22 08:30 98 03/04/22 05:52 86 134/81 100 03/04/22 01:15 94 H 148/92 03/04/22 00:59 98.2 F 94 H 20 148/92 100 03/03/22 20:30 99 03/03/22 16:50 98.8 F 105 H 135/96 Intake and Output 03/03/22 03/04/22 03/04/22 23:59 07:59 15:59 Intake Total 240 120 Balance 240 120 Intake: Oral 240 120 Other: Total, Intake Amount 240 120 # Voids Void 1 1 1 - Exam Breasts: Present: normal Uterus: Present: normal, firm, fundal height below umbilicus Extremities: Present: normal Incision: Present: normal, dry, intact - Labs Labs: Abnormal lab results 03/01/22 Range/Units 15:00 Crossmatch See Detail
--- NOTE | 2022-03-04 13:44 | Event Note ---
Date: 03/04/22 Provider in c/s and received report from MW that pt c/o having multiple c/o since last pm. Pt attributes to higher dosage of labetalol but this did not start until this am. Will obtain spiral ct, ekg, cbc and co-ags at this time. Plan of care d/w pt and questions addressed and answered.
--- NOTE | 2022-03-04 14:49 | Event Note ---
Date: 03/04/22 Provider at bedside with pt. Pt laughing sitting up in bed with mother at the bedside. Mother states she feels pt had anxiety attack. I d/w sx and if she has had this previously states yes with 1st baby and the sx were the same. I advised the my suspecision for PE is low but that we will con't the work up at this time. Pt and mother expressed understanding and she has no c/o at this time.
[2022-03-04 16:05] LABS: Hematocrit 24.4 % (30.3-42.9); Hemoglobin 8.1 gm/dl (10.1-14.3); Mean Corpuscular HGB Conc 33 % (30-34); Mean Corpuscular Volume 88 fl (79-97); Red Blood Count 2.76 M/mm3 (3.65-5.03); Red Cell Distribution Width 13.7 % (13.2-15.2)
[2022-03-04 16:08] LABS: INR 0.91 (0.87-1.13); Partial Thromboplastin Time 26.5 Sec. (24.2-36.6)
[2022-03-04 16:37] LABS: Basophils % (Manual) 0 % (0.0-1.8); Total Cells Counted 100
[2022-03-04 16:38] LABS: Anisocytosis 1+; Band Neutrophils # (Manual) 0.1 K/mm3
[2022-03-04 16:39] LABS: Large Platelets Few; Platelet Count 263 K/mm3 (140-440); Platelet Estimate Consistent w Auto
--- NOTE | 2022-03-04 17:18 | Event Note ---
Date: 03/04/22 CT dept called and notified of pt needing CT scan to r/o PE. Per RN, CT scan not completed yet d/t pt not NPO. Pt stable at this time and denies complaints. Per exam with CNM and MD at bedside, pt reports she may have had an anxiety attack. Pt smiling with mother holding infant at bedside. Mother agrees with dx of anxiety. Pt agreed to continue POC as ordered. Dr Jenkins aware of CT delay. Will continue to monitor pt closely.
--- NOTE | 2022-03-04 18:46 | Cat Scan Report ---
CTA CHEST WITH IV CONTRAST INDICATION / CLINICAL INFORMATION: heart palpitations, SOB. Patient had section 3 days ago. TECHNIQUE: Axial CT images were obtained through the chest after injection of 150 cc IV contrast. 2 attempts wer e made, as the first scan did not opacify well the pulmonary arteries. 3 plane MIP and/or 3D reconstr uctions were produced. All CT scans at this location are performed using CT dose reduction for ALARA by means of automated exposure control. COMPARISON: None available. FINDINGS: PULMONARY ARTERIES: No pulmonary emboli. THORACIC AORTA: No significant abnormality. HEART: No significant abnormality. CORONARY ARTERIES: No significant calcification. PLEURA: No pleural effusion. No pneumothorax. LYMPH NODES: No significant adenopathy. LUNGS: No acute air space or interstitial disease. ADDITIONAL FINDINGS: The thyroid is diffusely enlarged and contains several cystic areas. The appeara nce is consistent with prominent multinodular goiter. UPPER ABDOMEN: No acute findings. SKELETAL STRUCTURES: No significant osseous abnormality. IMPRESSION: 1. No CT evidence for pulmonary embolism. 2. No acute pulmonary or pleural disease. 3. Diffusely enlarged and nodular thyroid gland most likely multinodular goiter. Signer Name: Nilsa Patiño MD Signed: 03/04/2022 6:42 PM Workstation Name: [id number]
--- NOTE | 2022-03-05 09:34 | Discharge Summary ---
Providers - Providers Date of Admission: 03/01/22 19:51 Date of discharge: 03/05/22 Attending physician: ALFREDO JENKINS Primary care physician: ALFREDO JENKINS Hospitalization Reason for admission: section, IUP at term Delivery: Procedure: section, repeat low transverse Episiotomy: none Laceration: none Incision: normal, dry, intact Other procedures: none Discharge diagnosis: IUP at term delivered baby: female Condition at discharge: Good Disposition: 01 HOME / SELF CARE / HOMELESS - Discharge Diagnoses (1) HTN (hypertension) Status: Chronic (2) delivery delivered Status: Acute (3) Goiter Status: Acute Comment: To be followed outpatient. Dr Jenkins aware Plan - Discharge Medications Prescriptions: Docusate Sodium [Colace] 100 mg PO BID PRN #60 capsule PRN Reason: Constipation Ferrous Sulfate [Feosol 325 MG tab] 325 mg PO QDAY #60 tablet labetaloL [Labetalol 200mg TAB] 200 mg PO BID #60 tablet Ibuprofen [Motrin 800 MG tab] 800 mg PO Q8HR PRN #30 tablet PRN Reason: Pain, Moderate (4-6) oxyCODONE /ACETAMINOPHEN [Percocet 5/325] 1 tab PO Q4HR #30 tab - Provider Discharge Summary Activity: routine, no sex for 6 weeks, no heavy lifting 4 weeks, no strenuous exercise Diet: routine Instructions: routine Additional instructions: [] Smoking cessation referral if applicable(refer to patient education folder for contact #) [] Refer to [facility] Booklet Call your doctor immediately for: * Fever > 100.5 * Heavy vaginal bleeding ( >1 pad per hour) * Severe persistent headache * Shortness of breath * Reddened, hot, painful area to leg or breast * Drainage or odor from incision. * Keep incision clean and dry at all times and follow doctor's instructions regarding bathing/showering Please attend your postop visit as scheduled this week with [facility]. Please call [phone] with any questions or concerns. Thank you! - Follow up plan Follow up: ALFREDO JENKINS MD [Primary Care Provider] - 7 Days
[2022-03-05] MEDS: FERROUS SULFATE 325 MG TAB PO SCH (09:51)
[2022-03-05] MEDS: IBUPROFEN 800 MG TAB PO PRN (13:32)
[2022-03-05] MEDS: HYDROcodone/ACETAMINOPHEN 5-325 MG TAB PO PRN (13:33)
[2022-03-05 14:47] VITALS: BP 148/77
--- NOTE | 2022-03-06 14:11 | Electrocardiograph Report ---
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
== END 2022-03-05 15:47 | disposition home or self-care (01) | DRG 765 ==
LOC: TRG 11:35 → APU 11:37 → TRG 19:50 → APU 19:51 → LD 22:37 → OB 03-02 08:13
PROVIDERS: ADMIT Obstetrics & Gynecology; ATTEND Obstetrics & Gynecology
PROC: 10D00Z1 Extraction of Products of Conception, Low, Open Approach (ICD-10-PCS; principal; 2022-03-01)
PROC: 3E0234Z Introduction of Serum, Toxoid and Vaccine into Muscle, Percutaneous Approach (ICD-10-PCS; 2022-03-03)
DX: O13.4 Gestational [pregnancy-induced] hypertension without significant proteinuria, complicating childbirth (principal); D62 Acute posthemorrhagic anemia; O34.211 Maternal care for low transverse scar from previous cesarean delivery; O16.4 Unspecified maternal hypertension, complicating childbirth; O99.214 Obesity complicating childbirth; O90.81 Anemia of the puerperium; Z20.822 Contact with and (suspected) exposure to COVID-19; Z3A.37 37 weeks gestation of pregnancy; Z37.0 Single live birth; Z23 Encounter for immunization
CPT/HCPCS: 36415; 59025; 71260; 76815; 76819; 80053; 81001; 84550; 85007; 85014; 85018; 85025; 85027; 85379; 85384; 85610; 85730; 86592; 86850; 86900; 86901; 86920; 88307; 93005; G0378; J0630; J3490; J7121; Q0162; J0690; J2274; J2370; J2405; J2590; J2765; J7030; J7120; Q9967; U0003